=== PATIENT | female | born 1960 | race Caucasian/White ===

== ENCOUNTER 2023-09-05 10:05 | Inpatient (IN) | payer MEDICAID, SELFPAY ==
[2023-09-05] VITALS (21 sets, daily range): BP systolic 113–142; BP diastolic 66–89; PULSE 77–123; RESP 12–18; TEMP 36.9–37.2; O2SAT 88–99; BMI 22.3
--- NOTE | 2023-09-05 11:00 | CRLHL7_ITS ---
For Patients: As a result of the Century Cures Act, medical imaging exams and procedure reports are released immediately into your electronic medical record. You may view this report before your referring provider. If you have questions, please contact your health care provider. INDICATION: Abdominal pain. Diarrhea. TECHNIQUE: CT abdomen and pelvis acquired with 64 cc Isovue 370 IV contrast. COMPARISON: None. FINDINGS: Lower chest: Unremarkable. Liver: 3.3 cm superior right hepatic lobe lesion with peripheral nodular enhancement consistent with an incidental hemangioma. Diffuse hepatic steatosis. Gallbladder and bile ducts: Unremarkable. No stones or inflammation. No biliary dilatation. Pancreas: Focal enlargement and mild heterogeneous hypoenhancement of the pancreatic head with associated peripancreatic edema consistent with acute uncomplicated pancreatitis. Spleen: Unremarkable. Normal in size. No masses. Adrenal glands: Unremarkable. No nodules. Kidneys: Unremarkable. No suspicious masses, stones, or hydronephrosis. GI tract: Normal caliber. No sign of inflammation. Vasculature: Abdominal aorta is normal in caliber. Mesenteric arteries are patent. Lymph nodes: No lymphadenopathy. Peritoneum/Abdominal Wall: Small volume low-density pelvic ascites. No abscess. Pelvis: Lobulated uterus with multifocal coarse calcifications consistent with uterine fibroids which cannot be resolved on individual basis on this imaging modality, unlike ultrasound for example. Bones: Unremarkable for age. IMPRESSION: 1. Acute uncomplicated pancreatitis described above. 2. Diffuse hepatic steatosis. 3. Incidental findings described in the body of the report. Please note that all CT scans at this facility use dose modulation, iterative reconstruction, and/or weight-based dosing when appropriate to reduce radiation dose to as low as reasonably achievable. Dictated by Herberth Willams MD @ 09/05/2023 12:32:26 PM (Electronically Signed)
--- NOTE | 2023-09-05 11:04 | ED.ABDPAIN ---
HPI - Abdominal Pain General Chief Complaint: Abdominal Pain Stated Complaint: abdominal pain Time Seen by Provider: 09/05/23 10:50 History of Present Illness HPI narrative: This 63-year-old female comes in reporting abdominal pain with diarrhea and occasional vomiting occurring over the last 10 days. She arrives with normal vital signs except for tachycardia. She states that she feels that she is volume depleted. She denies having any fever or blood in the toilet. She states that she has a constant pain throughout her abdomen but more intensely in the left lower quadrant. She does have some episodes where the pain significantly increases. She states that she has taken Imodium without much relief. Related Data Home Medications Medication Instructions Recorded Confirmed amlodipine 2.5 mg tablet 2.5 mg PO DAILY 09/05/23 09/05/23 atorvastatin 20 mg tablet 20 mg PO DAILY 09/05/23 09/05/23 losartan 100 1 tab PO DAILY 09/05/23 09/05/23 mg-hydrochlorothiazide 12.5 mg tablet Allergies Allergy/AdvReac Type Severity Reaction Status Date / Time sulfas Allergy Unknown Unknown Uncoded 09/05/23 12:00 Review of Systems Status of ROS Reports: 10 or more systems reviewed and unremarkable except as noted in History and below Narrative Constitutional: No fevers. Eyes: No discharge. No vision changes. HENT: No congestion, no sore throat, no ear pain. Cardiovascular: No chest pain, no palpitations. Respiratory: No shortness of breath, no wheezes, no cough. Gastrointestinal: Abdominal pain with vomiting and diarrhea as described above. Genitourinary: No dysuria, no hematuria. Musculoskeletal: Normal range of motion. Skin: No rashes, no pruritis. Neurological: No dizziness, weakness, sensory change, speech change. Endo/Heme/Allergies: No bruising or bleeding. No polydipsia. Pysch: no suicidality, no anxiety, no insomnia. All other systems reviewed and are negative. PFSH PFSH Social History Smoking Status: Never smoker How often do you have a drink containing alcohol: 4 or more times a week How many standard drinks containing alcohol do you have on a typical day: 3 or 4 How often do you have six or more drinks on one occasion: Daily or almost daily AUDIT-C Alcohol total score: 9 Non-prescribed substance use: denies use service: No Exam Narrative: Exam Narrative: Constitutional: Well-developed, well-nourished, no acute distress. HEENT: Normocephalic, atraumatic. Neck: Normal range of motion. Nontender. Supple. Heart: Regular. No murmurs. Normal rate. Intact distal pulses. Lungs: Clear to auscultation. No chest discomfort. No wheezes, rhonchi, or rales. Abdomen: Normal bowel sounds. Diffuse tenderness throughout the abdomen. She feels that her abdomen is distended. No rebound tenderness. Genitalia: Deferred. Back: No midline tenderness. Normal range of motion. Extremities: Normal range of motion. No injury. Skin: Intact. No rash. Warm. No erythema or pallor. Neurologic: No altered sensation. No weakness. Alert and oriented. Psychiatric: No suicidality. No anxiety or depression. No insomnia. Nursing notes and vitals signs are reviewed. Const: Vital Signs, click to edit/add: Vital Signs - 24 hr 09/05/23 10:14 09/05/23 11:27 09/05/23 11:28 Temperature 98.7 F Pulse Rate 91 88 Pulse Rate [Pulse Oximeter] 123 H Respiratory Rate 18 Blood Pressure 126/72 Blood Pressure [Ri ght Upper Arm] 132/78 Pulse Oximetry 97 88 97 Oxygen Delivery Me thod Room Air 09/05/23 11:30 09/05/23 11:32 09/05/23 11:45 Temperature Pulse Rate 87 86 84 Pulse Rate [Pulse Oximeter] Respiratory Rate Blood Pressure 113/66 Blood Pressure [Ri ght Upper Arm] Pulse Oximetry 97 96 95 Oxygen Delivery Me thod 09/05/23 12:00 09/05/23 12:03 09/05/23 12:15 Temperature Pulse Rate 94 95 88 Pulse Rate [Pulse Oximeter] Respiratory Rate Blood Pressure 132/77 Blood Pressure [Ri ght Upper Arm] Pulse Oximetry 97 98 97 Oxygen Delivery Me thod 09/05/23 12:30 09/05/23 12:32 09/05/23 12:45 Temperature Pulse Rate 89 89 84 Pulse Rate [Pulse Oximeter] Respiratory Rate Blood Pressure 123/70 Blood Pressure [Ri ght Upper Arm] Pulse Oximetry 97 96 94 Oxygen Delivery Me thod Course Vital Signs Vital signs: Initial Vital Signs Temperature 98.7 F 09/05/23 10:14 Temperature Source Temporal Artery Scan 09/05/23 10:14 Pulse Rate 123 H 09/05/23 10:14 Respiratory Rate 18 09/05/23 10:14 Blood Pressure 132/78 09/05/23 10:14 Blood Pressure Mean 96 09/05/23 10:14 Pulse Oximetry 97 09/05/23 10:14 Oxygen Delivery Method Room Air 09/05/23 10:14 Vital Signs Temperature 98.7 F 09/05/23 10:14 Pulse Rate 123 H 09/05/23 10:14 Respiratory Rate 18 09/05/23 10:14 Blood Pressure 132/78 09/05/23 10:14 Pulse Oximetry 97 09/05/23 10:14 Oxygen Delivery Method Room Air 09/05/23 10:14 Temperature 98.7 F 09/05/23 10:14 Pulse Rate 84 09/05/23 12:45 Respiratory Rate 18 09/05/23 10:14 Blood Pressure 123/70 09/05/23 12:32 Pulse Oximetry 94 09/05/23 12:45 Oxygen Delivery Method Room Air 09/05/23 10:14 Medications Administered Medications: Discontinued Medications Generic Name Dose Route Start Last Admin Trade Name Freq PRN Reason Stop Dose Admin Sodium Chloride 1,000 mls @ 1,000 mls/hr 09/05/23 11:00 09/05/23 12:22 0.9 % Sodium Chloride 1000 Ml IV 09/05/23 11:59 Infused .Q1H MATT Infusion MDM - Abdominal Pain MDM Narrative Medical decision making narrative: This 63-year-old female comes in with abdominal pain. An IV was established where she did receive a L of normal saline. Lab results are obtained in returned with evidence of pancreatitis. Her lipase was close to 4500. She also has elevated liver enzymes typical of alcohol abuse. The patient states that she does take 2 or 3 glasses of wine every night. She reports that she has not had pancreatitis in the past. CT imaging also shows evidence of a calcified uterine fibroid and a liver hemangioma. Urinalysis does have 10-25 white blood cells per high-powered field. She does not describe any symptoms of dysuria. I recommended admission to the hospital to the patient and she is agreeable with this plan. I spoke with the hospitalist, Dr. Hollingsworth, who will arrange for admission and ongoing management of her pancreatitis. Lab Data Labs: Lab Results 09/05/23 09/05/23 Range/Units 10:38 10:47 WBC 8.94 (4.50-11.00) K/uL RBC 3.45 L (4.00-5.20) m/uL Hgb 12.1 (12.0-16.0) gm/dL Hct 36.4 (33.0-51.0) % MCV 106 H (80-100) fL MCH 35 H (26-34) pg MCHC 33 (32-36) gm/dL RDW Coeff of Inocencio 12.4 (11.5-15.5) % Plt Count 117 L (140-440) K/uL Neut % (Auto) 75.1 H (42.0-72.0) % Lymph % (Auto) 11.1 L (20-44) % [place] % (Auto) 13.0 H (0.0-11.0) % Eos % (Auto) 0.1 (0.0-7.0) % Baso % (Auto) 0.4 (0.0-3.0) % Neut # (Auto) 6.70 (1.7-7.0) K/uL Lymph # (Auto) 1.00 (0.90-2.90) K/uL [place] # (Auto) 1.20 H (0.00-0.90) K/UL Eos # (Auto) 0.01 (0.00-0.50) K/uL Baso # (Auto) 0.04 (0.00-0.30) K/uL Abs Immat Gran (auto) 0.03 (0.00-0.30) K/uL Imm/Tot Granulo (auto) 0.3 % Sodium 131 L (135-149) mmol/L Potassium 4.1 (3.6-5.1) mmol/L Chloride 86 L (96-114) mmol/L Carbon Dioxide 21 (20-32) mmol/L Anion Gap 24 H (7-15) mEq/L BUN 21 (7-30) mg/dL Creatinine 1.3 (0.5-1.5) mg/dL Estimated Creat Clear 38.25 Estimated GFR 46 ml/min Glucose 93 (60-115) mg/dL Calcium 11.4 H (8.4-10.6) mg/dL Total Bilirubin 1.6 H (0.1-1.5) mg/dL Direct Bilirubin 0.7 H (0.0-0.5) mg/dL AST 271 H (12-35) U/L ALT 128 H (4-35) U/L Alkaline Phosphatase 132 (40-150) U/L Total Protein 8.5 H (6.0-8.3) g/dL Albumin 5.1 H (3.3-5.0) g/dL Lipase 4490 H (23-300) U/L Urine Color Yellow (Yellow) Urine Appearance Slightly Cloudy A (Clear) Urine pH 5.5 (5.0-8.5) Ur Specific [place] 1.020 (1.000-1.030) Urine Protein Trace A (Negative) Urine Glucose (UA) Negative (Negative) Urine Ketones 1+ A (Negative) Urine Blood 2+ A (Negative) Urine Nitrite Negative (Negative) Urine Bilirubin 2+ A (Negative) Urine Urobilinogen 0.2 (0.2-1.0) Ur Leukocyte Esterase 1+ A (Negative) Urine RBC 5-10 A (0-2) Urine WBC 10-25 A (0-5) Ur Squamous Epith Cells Few (None-Few) Urine Bacteria Moderate A (None) Discharge Plan Discharge Clinical Impression: Acute pancreatitis Patient Disposition: Admitted As Observation Condition: Unchanged Prescriptions: No Action amlodipine 2.5 mg tablet 2.5 mg PO DAILY atorvastatin 20 mg tablet 20 mg PO DAILY losartan-hydrochlorothiazide 100-12.5 mg tablet 1 tab PO DAILY Follow Up/Referrals: Provider,Not a Local [Primary Care Provider] -
[2023-09-05 11:23] LABS: Basophils Absolute Auto 0.04 K/uL (0.00-0.30); Basophils Percent Auto 0.4 % (0.0-3.0); Eosinophils Absolute Auto 0.01 K/uL (0.00-0.50); Eosinophils Percent Auto 0.1 % (0.0-7.0); Hematocrit 36.4 % (33.0-51.0); Hemoglobin* 12.1 gm/dL (12.0-16.0); Immature Granulocytes Abs Auto 0.03 K/uL (0.00-0.30); Immature Granulocytes Pct Auto 0.3 %; Lymphocytes Percent Auto 11.1 % (20-44); Mean Corpuscular HGB Conc 33 gm/dL (32-36); Mean Corpuscular Hemoglobin 35 pg (26-34); Mean Corpuscular Volume 106 fL (80-100); Neutrophils Percent Auto 75.1 % (42.0-72.0); Platelet Count* 117 K/uL (140-440); RDW Coefficient of Variation % 12.4 % (11.5-15.5); Red Blood Count 3.45 m/uL (4.00-5.20); White Blood Count* 8.94 K/uL (4.50-11.00)
[2023-09-05 11:26] LABS: Slide Review Reflex No
[2023-09-05] MEDS: 0.9 % SODIUM CHLORIDE 1000 ml 1,000 ML IV (11:27)
[2023-09-05 11:31] LABS: Appearance Urine Slightly Cloudy (Clear); Bilirubin Urine 2+ (Negative); Blood Urine 2+ (Negative); Color Urine Yellow (Yellow); Glucose Urine Negative (Negative); Ketones Urine 1+ (Negative); Leukocyte Esterase Urine 1+ (Negative); Nitrite Urine Negative (Negative); Protein Urine Trace (Negative); Urobilinogen Urine 0.2 (0.2-1.0); pH Urine 5.5 (5.0-8.5)
[2023-09-05 11:32] LABS: Bacteria Urine Moderate; Squamous Epithelial Cell Urine Few (None-Few)
[2023-09-05 11:35] LABS: Albumin* 5.1 g/dL (3.3-5.0)
[2023-09-05 11:36] LABS: Chloride* 86 mmol/L (96-114); Sodium* 131 mmol/L (135-149)
[2023-09-05 11:37] LABS: Potassium* 4.1 mmol/L (3.6-5.1)
[2023-09-05 11:38] LABS: Aspartate Amino Transferase* 271 U/L (12-35); Bilirubin Direct* 0.7 mg/dL (0.0-0.5); Bilirubin Total* 1.6 mg/dL (0.1-1.5); Total Protein* 8.5 g/dL (6.0-8.3)
[2023-09-05 11:39] LABS: Alanine Aminotransferase* 128 U/L (4-35); Alkaline Phosphatase* 132 U/L (40-150); Creatinine* 1.3 mg/dL (0.5-1.5); Est. Creatinine Clearance* 38.25; Estimated Glomerular Filt Rate 46 ml/min
[2023-09-05 11:40] LABS: Anion Gap 24 mEq/L (7-15); Blood Urea Nitrogen* 21 mg/dL (7-30); Calcium* 11.4 mg/dL (8.4-10.6); Carbon Dioxide* 21 mmol/L (20-32); Glucose* 93 mg/dL (60-115)
[2023-09-05 12:16] LABS: Lipase* 4490 U/L (23-300)
--- NOTE | 2023-09-05 15:14 | PM.IMHP1 ---
Hospitalist- H&P: HPI History of Present Illness Date Seen: 09/05/23 Chief complaint: abdominal pain Narrative: ADMISSION HISTORY AND PHYSICAL - HOSPITALIST Chief Complaint: acute pancreatitis, alcohol use disorder HPI: 63 y/o WF with a history of daily alcohol use and likely alcohol use disorder presents with acute pancreatitis. She states she has not been well for almost 2 weeks. She describes abdominal pain that comes in waves and frequent diarrheal stools. No fever. Intermittent vomiting. No appetite. She presented today to our ER secondary to increasing abdominal pain inability to work as a hairdresser. She describes her alcohol intake as daily with a minimum of 3 glasses of wine after work. She lives with her fiance who also drinks. She does not smoke tobacco. She does not use drugs. She states that she has had the shakes before when she cuts back on drinking but has never known to be in full withdrawal or have had a seizure. She has never had pancreatitis before. Her other past medical history is relevant for hypertension and hyperlipidemia. She has a history of SVT and is status post ablation. ER COURSE: fluids, CT A/P with labs. No opioids given. Hospitalist team called for admission secondary to acute pancreatitis. CODE STATUS: FULL CODE EMERGENCY CONTACT PLAN: MelissaJori? Life Partner?Rel to [facility]? [phone]?Cell Phone? I've updated the PFSH, medications and allergies in the Expanse tabs. INVESTIGATIONS: LABS/MICRO/ECG/IMAGING CBC reflects a normal white blood cell count. Normal hemoglobin. MCV 106. Platelet count 117. Chemistries reflect a mild hyponatremia, creatinine 1.3, hypercalcemia, transaminitis with mild hyperbilirubinemia Elevated albumin, total protein and a lipase of 4490. Pending: Blood gas, INR, GGT, magnesium, drugs of abuse REVIEW OF SYSTEMS: 12-point ROS completed with patient and negative unless otherwise stated in HPI or below. PHYSICAL EXAM: CONSTITUTIONAL: anxious appearing, tremulous, otherwise coherent VITAL SIGNS: see record. HEENT: Normocephalic, atraumatic. PERRL, EOMI, conjunctivae pink, no scleral icterus. Ears and nose externally normal. Pharynx normal. NECK: No JVD. No carotid bruit, no thyromegaly, no adenopathy. CHEST: Clear to auscultation bilaterally HEART: S1 and S2 normal. No harsh murmurs. Edema trace ABDOMEN: Tender across the mid epigastric. Normal bowel sounds. MUSCULOSKELETAL: No gross joint deformity or swelling. NEURO: Cranial nerves intact. Grossly intact. No asymmetric findings. SKIN: No rashes, petechiae, concerning changes PSYCHIATRIC: Euthymic. ADMIT TO MEDSURG: FLOOR CARE DVT: Lovenox GI: NPO with PPI and advanced to clears when appropriate Time spent: Today I spent 75 minutes seeing the patient, discussing the patient with ER staff, reviewing Expanse and EPIC notes/diagnostics, discussing the care plan with our care time that includes social work, PT/OT, pharmacy, RT, penitentiary and documenting my impressions and plan in the medical record. [facility] Medical History (Updated 09/05/23 @ 15:39 by Regla Camarillo MD) Alcoholic liver disease ?K70.9 - Alcoholic liver disease, unspecified (ICD-10) Alcohol use disorder ?F10.90 - Alcohol use, unspecified, uncomplicated (ICD-10) Hyperlipidemia ?E78.5 - Hyperlipidemia, unspecified (ICD-10) Hypertension ?I10 - Essential (primary) hypertension (ICD-10) Surgical History (Updated 09/05/23 @ 15:37 by Regla Camarillo MD) History of dilation and curettage ?Z98.890 - Other specified postprocedural states (ICD-10) History of tonsillectomy ?Z90.89 - Acquired absence of other organs (ICD-10) History of radiofrequency ablation procedure for cardiac arrhythmia ?Z98.890 - Other specified postprocedural states (ICD-10) Social History (Updated 09/05/23 @ 15:38 by Regla Camarillo MD) Narrative: lives with life partner, JORI. drinks daily, works as a hairdresser. What is your current living situation?: I presently have a place to live Problems where you live: no known problems Problems where you live details: none In the past 12 months, utilities in danger of being shut off: no In past 12 months, lack of transportation kept you from medical appts, meetings, work, or getting things needed for daily living: no In the past 12 mos, have been you worried that your food would run out before you had money to buy more?: never true In the past 12 mos, the food you bought just didn't last and you didn't have money to buy more?: never true Highest level of school completed/degree received: some college, no degree Smoking Status: Former smoker Nicotine containing products detail: Have not smoked for 45 years How often do you have a drink containing alcohol: 4 or more times a week Alcohol type: wine How many standard drinks containing alcohol do you have on a typical day: 3 or 4 How often do you have six or more drinks on one occasion: Monthly AUDIT-C Alcohol total score: 7 Non-prescribed substance use: denies use Caffeine: No How often does anyone, including family, friends and others, physically hurt you: never How often does anyone, including family, friends and others, insult or talk down to you: never How often does anyone, including family, friends and others, threaten you with harm: never How often does anyone, including family, friends and others, scream or curse at you: never service: No Meds Home Medications and Allergies Home Medications Medication Instructions Recorded Confirmed Type amlodipine 2.5 mg tablet 2.5 mg PO DAILY 09/05/23 09/05/23 History atorvastatin 20 mg tablet 20 mg PO DAILY 09/05/23 09/05/23 History losartan 100 1 tab PO DAILY 09/05/23 09/05/23 History mg-hydrochlorothiazide 12.5 mg tablet Allergies Allergy/AdvReac Type Severity Reaction Status Date / Time sulfas Allergy Unknown Unknown Uncoded 09/05/23 12:00 Exam Const: Vital Signs, click to edit/add: Vital Signs - 24 hr 09/05/23 10:14 09/05/23 11:27 09/05/23 11:28 Temperature 98.7 F Pulse Rate 91 88 Pulse Rate [Pulse Oximeter] 123 H Respiratory Rate 18 Blood Pressure 126/72 Blood Pressure [Ri ght Arm] Blood Pressure [Ri ght Upper Arm] 132/78 Pulse Oximetry 97 88 97 Oxygen Delivery Me thod Room Air 09/05/23 11:30 09/05/23 11:32 09/05/23 11:45 Temperature Pulse Rate 87 86 84 Pulse Rate [Pulse Oximeter] Respiratory Rate Blood Pressure 113/66 Blood Pressure [Ri ght Arm] Blood Pressure [Ri ght Upper Arm] Pulse Oximetry 97 96 95 Oxygen Delivery Me thod 09/05/23 12:00 09/05/23 12:03 09/05/23 12:15 Temperature Pulse Rate 94 95 88 Pulse Rate [Pulse Oximeter] Respiratory Rate Blood Pressure 132/77 Blood Pressure [Ri ght Arm] Blood Pressure [Ri ght Upper Arm] Pulse Oximetry 97 98 97 Oxygen Delivery Me thod 09/05/23 12:30 09/05/23 12:32 09/05/23 12:45 Temperature Pulse Rate 89 89 84 Pulse Rate [Pulse Oximeter] Respiratory Rate Blood Pressure 123/70 Blood Pressure [Ri ght Arm] Blood Pressure [Ri ght Upper Arm] Pulse Oximetry 97 96 94 Oxygen Delivery Me thod 09/05/23 13:51 Temperature 98.6 F Pulse Rate Pulse Rate [Pulse Oximeter] 98 Respiratory Rate 12 Blood Pressure Blood Pressure [Ri ght Arm] 134/89 Blood Pressure [Ri ght Upper Arm] Pulse Oximetry 98 Oxygen Delivery Me thod Room Air Hospitalist - H&P: Result Labs Labs: Short CBC 09/05/23 Range/Units 10:38 WBC 8.94 (4.50-11.00) K/uL Hgb 12.1 (12.0-16.0) gm/dL Hct 36.4 (33.0-51.0) % Plt Count 117 L (140-440) K/uL BMP 09/05/23 10:38 Sodium 131 L Potassium 4.1 Chloride 86 L Carbon Dioxide 21 BUN 21 Creatinine 1.3 Glucose 93 Calcium 11.4 H Liver Function 09/05/23 Range/Units 10:38 Total Bilirubin 1.6 H (0.1-1.5) mg/dL Direct Bilirubin 0.7 H (0.0-0.5) mg/dL AST 271 H (12-35) U/L ALT 128 H (4-35) U/L Alkaline Phosphatase 132 (40-150) U/L Albumin 5.1 H (3.3-5.0) g/dL Urine 09/05/23 Range/Units 10:47 Urine Color Yellow (Yellow) Urine Appearance Slightly Cloudy A (Clear) Urine pH 5.5 (5.0-8.5) Ur Specific [place] 1.020 (1.000-1.030) Urine Protein Trace A (Negative) Urine Glucose (UA) Negative (Negative) Assessment and Plan Assessment and plan (1) Acute pancreatitis: Problem comment: - by imaging uncomplicated - analgesia, antiemetics, rehydration -trend labs Status: Acute (2) Alcohol withdrawal: Problem comment: -last drink (relates 2-3 glasses of wine daily; sometimes a bloody isak) on 09/03. BARBARA ordered -Ativan per protocol. -phenobarb, 260 mg load -fluids -CCU status pending clinical appearance over the next 2-4 hours Status: Acute (3) Diarrhea: Problem comment: -stool cultures and C diff ordered Status: Acute (4) Alcoholic liver disease: Problem comment: -stigmata to include low platelets, elevated MCV, low sodium, transaminitis, hyperbilirubinemia Status: Acute (5) Alcohol use disorder: Problem comment: -minimal acknowledgement Status: Acute (6) Hypertension: Problem comment: -3 med home regimen: Amlodipine, losartan, hydrochlorothiazide -monitor but hold meds currently Status: Acute (7) Hyperlipidemia: Problem comment: -statin, on hold currently Status: Acute
[2023-09-05 15:21] LABS: HCO3 VBG 26 mmol/L (21-28); Ionized Calcium* 1.29 mmol/L (1.11-1.30); PCO2 VBG 42 mmHG (40-50)
[2023-09-05] MEDS: 5 % DEXTROSE/0.9% SOD CHLORIDE 1,000 ML 125 ML IV (15:24)
[2023-09-05] MEDS: PANTOPRAZOLE SODIUM 40 MG INJ IVP (15:24)
[2023-09-05 15:29] LABS: INR 0.94 (0.91-1.10); Prothrombin Time 13.1 Seconds
[2023-09-05] MEDS: PHENobarbitaL 260 MG in 0.9 % SODIUM CHLORIDE 100 ml 100 ML 208 MG IVPB (15:35)
[2023-09-05 15:39] LABS: Gamma Glutamyl Transpeptidase* 504 U/L (8-55); Magnesium* 1.3 mg/dL (1.5-2.6)
[2023-09-05] MEDS: HYDROmorphone 0.5 mg/0.5 ml inj IVP ×3 (15:45→22:27)
[2023-09-05] MEDS: ENOXAPARIN 30 MG/0.3ML INJ SUBCUT (15:45)
[2023-09-05 16:00] LABS: C Reactive Protein* 3.1 mg/dL (0.5-1.0)
--- NOTE | 2023-09-05 16:00 | PC.NURSE ---
End of Shift: Patient arrived to floor about 1347. Patient vitally stable, lungs clear, BS WNL, IV SL. Patient rates lower epigastric pain/abdominal pain 8/10. Patient independent in room. Patient has obvious tremors in hands and reports being a little more anxious because she is in the hospital. Patient reports loose stools. Admission completed by this movie writer then assignment change occurred, report given to next RN.
[2023-09-05 16:13] LABS: Troponin I* < 0.01 ng/mL (0.01-0.04)
[2023-09-05] MEDS: THIAMINE 250 MG in 0.9 % SODIUM CHLORIDE 100 ml 100 ML 102.5 MG IVPB (20:08)
[2023-09-05] MEDS: GABAPENTIN 300 MG CAPSULE PO (20:08)
[2023-09-06] VITALS (16 sets, daily range): BP systolic 108–142; BP diastolic 65–90; PULSE 69–92; RESP 14–18; TEMP 36.7–37.7; O2SAT 93–97
[2023-09-06] MEDS: 5 % DEXTROSE/0.9% SOD CHLORIDE 1,000 ML 125 ML IV ×2 (01:39→09:24)
[2023-09-06] MEDS: KETOROLAC 30 MG/ML inj IVP ×4 (01:40→21:12)
[2023-09-06] MEDS: SODIUM CHLORIDE 0.9 % (FLUSH) 10 ML SYRINGE 5 ML IVF ×4 (01:40→21:14)
[2023-09-06] MEDS: HYDROmorphone 0.5 mg/0.5 ml inj IVP ×5 (06:30→21:14)
[2023-09-06] MEDS: OMEPRAZOLE 20 MG CAPSULE DR 40 MG PO (06:30)
[2023-09-06 07:37] LABS: Hematocrit 32.3 % (33.0-51.0); Hemoglobin* 10.5 gm/dL (12.0-16.0); Mean Corpuscular HGB Conc 33 gm/dL (32-36); Mean Corpuscular Hemoglobin 35 pg (26-34); Mean Corpuscular Volume 108 fL (80-100); Platelet Count* 102 K/uL (140-440); Red Blood Count 2.98 m/uL (4.00-5.20); White Blood Count* 5.57 K/uL (4.50-11.00)
[2023-09-06 07:45] LABS: Slide Review Reflex No
[2023-09-06 07:48] LABS: Chloride* 100 mmol/L (96-114); Sodium* 136 mmol/L (135-149)
[2023-09-06 07:49] LABS: Iron* 46 ug/dL (37-170); Potassium* 3.4 mmol/L (3.6-5.1)
[2023-09-06 07:51] LABS: Anion Gap 11 mEq/L (7-15); Aspartate Amino Transferase* 115 U/L (12-35); Bilirubin Direct* 0.1 mg/dL (0.0-0.5); Bilirubin Total* 0.8 mg/dL (0.1-1.5); Carbon Dioxide* 25 mmol/L (20-32); Creatinine* 0.9 mg/dL (0.5-1.5); Est. Creatinine Clearance* 48.78; Estimated Glomerular Filt Rate 72 ml/min; Total Protein* 6.9 g/dL (6.0-8.3)
[2023-09-06 07:52] LABS: Alanine Aminotransferase* 83 U/L (4-35); Alkaline Phosphatase* 98 U/L (40-150); Blood Urea Nitrogen* 17 mg/dL (7-30); Calcium* 8.7 mg/dL (8.4-10.6); Glucose* 125 mg/dL (60-115); Phosphorus* 3.4 mg/dL (2.5-4.5)
[2023-09-06 07:54] LABS: C Reactive Protein* 3.3 mg/dL (0.5-1.0)
[2023-09-06 07:59] LABS: Percent Iron Saturation 22 % (20-50); Total Iron Binding Capacity 211 ug/dL (265-497)
[2023-09-06 08:35] LABS: Lipase* 19752 U/L (23-300)
[2023-09-06] MEDS: THIAMINE 250 MG in 0.9 % SODIUM CHLORIDE 100 ml 100 ML 100 MG IVPB (09:24)
[2023-09-06] MEDS: FOLIC ACID 1 MG TABLET PO (09:26)
[2023-09-06] MEDS: LOSARTAN POTASSIUM 50 MG TABLET 100 MG PO (09:26)
[2023-09-06] MEDS: MULTIVITAMIN/MINERALS 1 TABLET 1 TAB PO (09:26)
[2023-09-06] MEDS: hydroCHLOROthiazide 12.5 MG CAPSULE PO (09:26)
[2023-09-06] MEDS: AMLODIPINE 5 MG TABLET 2.5 MG PO (09:26)
[2023-09-06] MEDS: ATORVASTATIN 10 MG TABLET 20 MG PO (09:26)
--- NOTE | 2023-09-06 10:15 | PM.IMPN1 ---
Progress Note: A&P Assessment and plan (1) Acute pancreatitis: Problem details: - by imaging uncomplicated - analgesia, antiemetics, rehydration - nausea, vomiting, diarrhea resolved - clear liquid diet - continue to trend labs, CMP, lipase Status: Acute (2) Alcohol withdrawal: Problem details: -last drink (relates 2-3 glasses of wine daily; sometimes a bloody isak) on 09/03. CIWA ordered -Ativan per protocol. -phenobarb, 260 mg load x1 -continue IVF, thiamine, folate, MVI -okay for med surg status on 09/06 -UDS pending Status: Acute (3) Diarrhea: Problem details: -stool cultures and C diff pending 09/06: No further stools Status: Acute (4) Alcoholic liver disease: Problem details: -stigmata to include low platelets, elevated MCV, low sodium, transaminitis, hyperbilirubinemia -continue to trend labs -outpatient follow-up Status: Acute (5) Alcohol use disorder: Problem details: -minimal acknowledgement -social work instructor for CD eval if still in hospital on Friday Status: Acute (6) Hypertension: Problem details: -3 med home regimen: Amlodipine, losartan, hydrochlorothiazide -monitor but hold meds - continue to hold given soft pressures 09/06 Status: Acute (7) Hyperlipidemia: Problem details: -statin, on hold currently Status: Acute Time Spent With Patient Total time spent: Total time spent caring for the patient today was 45 minutes. This includes time spent for the visit reviewing the chart, time spent during the visit, time spent after the visit and documentation and planning in coordination of care. Subjective Date Seen: 09/06/23 Interval history: Patient reports feeling better than on admission. Continues to have abdominal pain but this has improved as well. No further nausea or vomiting. No further loose stools. Denies headache or dizziness currently. Remains afebrile. Has been shaky but less so today than on admission. Denies history of withdrawals. Exam Narrative: Exam Narrative: PHYSICAL EXAM General: Pleasant, conversant, NAD HEENT: Normocephalic, atraumatic, sclera white, EOMI, oral mucosa moist Cardiovascular: RRR, S1S2. No pitting edema Pulmonary: CTA bilaterally without rhonchi, rales, expiratory wheezes. No dyspnea Abdominal: Soft, nondistended, RUQ and midepigastric tenderness on palpation, no guarding Neurological: Alert, answering questions appropriately, cranial nerves intact, no focal findings Extremities: Upper extremities tremulous, No gross joint deformity or swelling. AROMI. Neurovascularly intact Skin: Warm, dry. Const: Vital Signs, click to edit/add: Vital Signs - 24 hr 09/05/23 11:27 09/05/23 11:28 09/05/23 11:30 Temperature Pulse Rate 91 88 87 Pulse Rate [Pulse Oximeter] Respiratory Rate Blood Pressure 126/72 Blood Pressure [Ri ght Arm] Pulse Oximetry 88 97 97 Oxygen Delivery Me thod 09/05/23 11:32 09/05/23 11:45 09/05/23 12:00 Temperature Pulse Rate 86 84 94 Pulse Rate [Pulse Oximeter] Respiratory Rate Blood Pressure 113/66 Blood Pressure [Ri ght Arm] Pulse Oximetry 96 95 97 Oxygen Delivery Me thod 09/05/23 12:03 09/05/23 12:15 09/05/23 12:30 Temperature Pulse Rate 95 88 89 Pulse Rate [Pulse Oximeter] Respiratory Rate Blood Pressure 132/77 Blood Pressure [Ri ght Arm] Pulse Oximetry 98 97 97 Oxygen Delivery Me thod 09/05/23 12:32 09/05/23 12:45 09/05/23 13:51 Temperature 98.6 F Pulse Rate 89 84 Pulse Rate [Pulse Oximeter] 98 Respiratory Rate 12 Blood Pressure 123/70 Blood Pressure [Ri ght Arm] 134/89 Pulse Oximetry 96 94 98 Oxygen Delivery Me thod Room Air 09/05/23 15:20 09/05/23 15:20 09/05/23 15:20 Temperature 98.9 F Pulse Rate Pulse Rate [Pulse Oximeter] 92 Respiratory Rate 18 Blood Pressure Blood Pressure [Ri ght Arm] 142/85 H Pulse Oximetry 96 96 96 Oxygen Delivery Me thod Room Air Room Air 09/05/23 16:00 09/05/23 16:50 09/05/23 17:00 Temperature Pulse Rate 77 Pulse Rate [Pulse Oximeter] 87 77 Respiratory Rate 18 16 Blood Pressure Blood Pressure [Ri ght Arm] 137/88 123/76 Pulse Oximetry 96 97 Oxygen Delivery Me thod Room Air Room Air 09/05/23 19:45 09/05/23 20:00 09/05/23 22:00 Temperature 98.5 F Pulse Rate 77 Pulse Rate [Pulse Oximeter] 87 81 Respiratory Rate 16 16 Blood Pressure Blood Pressure [Ri ght Arm] 126/80 137/87 Pulse Oximetry 99 94 Oxygen Delivery Sc thod Room Air Room Air 09/05/23 23:00 09/06/23 00:00 09/06/23 02:00 Temperature Pulse Rate Pulse Rate [Pulse Oximeter] 73 74 Respiratory Rate 16 16 16 Blood Pressure Blood Pressure [Ri ght Arm] 135/81 118/90 H Pulse Oximetry 96 94 Oxygen Delivery Sc thod Room Air Room Air 09/06/23 05:00 09/06/23 07:00 09/06/23 07:00 Temperature 98.3 F 98.4 F Pulse Rate Pulse Rate [Pulse Oximeter] 73 79 79 Respiratory Rate 16 16 16 Blood Pressure Blood Pressure [Ri ght Arm] 118/84 129/81 Pulse Oximetry [address] [facility] [facility] 09/06/23 07:35 09/06/23 09:54 Temperature 98.4 F 98.0 F Pulse Rate Pulse Rate [Pulse Oximeter] 79 84 Respiratory Rate 16 18 Blood Pressure Blood Pressure [Ri ght Arm] 129/81 108/65 Pulse Oximetry 97 97 Oxygen Delivery Sc thod Room Air Room Air Labs Labs: Laboratory Results - last 24 hr 09/05/23 09/05/23 09/05/23 10:38 10:47 15:04 WBC 8.94 RBC 3.45 L Hgb 12.1 Hct 36.4 MCV 106 H MCH 35 H MCHC 33 RDW Coeff of Inocencio 12.4 Plt Count 117 L Neut % (Auto) 75.1 H Lymph % (Auto) 11.1 L [place] % (Auto) 13.0 H Eos % (Auto) 0.1 Baso % (Auto) 0.4 Neut # (Auto) 6.70 Lymph # (Auto) 1.00 [place] # (Auto) 1.20 H Eos # (Auto) 0.01 Baso # (Auto) 0.04 Abs Immat Gran (auto) 0.03 Imm/Tot Granulo (auto) 0.3 INR 0.94 VBG pH VBG pCO2 VBG pO2 VBG HCO3 Sodium 131 L Potassium 4.1 Chloride 86 L Carbon Dioxide 21 Anion Gap 24 H BUN 21 Creatinine 1.3 Estimated Creat Clear 38.25 Estimated GFR 46 Glucose 93 Lactate Calcium 11.4 H Ionized Calcium Parag Phosphorus Magnesium 1.3 L Iron TIBC % Saturation Ferritin Total Bilirubin 1.6 H Direct Bilirubin 0.7 H GGT 504 H AST 271 H ALT 128 H Alkaline Phosphatase 132 Troponin I C-Reactive Protein Total Protein 8.5 H Albumin 5.1 H Lipase 4490 H TSH 1.920 Urine Color Yellow Urine Appearance Slightly Cloudy A Urine pH 5.5 Ur Specific [place] 1.020 Urine Protein Trace A Urine Glucose (UA) Negative Urine Ketones 1+ A Urine Blood 2+ A Urine Nitrite Negative Urine Bilirubin 2+ A Urine Urobilinogen 0.2 Ur Leukocyte Esterase 1+ A Urine RBC 5-10 A Urine WBC 10-25 A Ur Squamous Epith Cells Few Urine Bacteria Moderate A Ur Drug Screen Comment See Note Lab Acknowledgement Test Added 09/05/23 09/06/23 15:13 06:55 WBC 5.57 RBC 2.98 L Hgb 10.5 L Hct 32.3 L MCV 108 H MCH 35 H MCHC 33 RDW Coeff of Inocencio Plt Count 102 L Neut % (Auto) Lymph % (Auto) [place] % (Auto) Eos % (Auto) Baso % (Auto) Neut # (Auto) Lymph # (Auto) [place] # (Auto) Eos # (Auto) Baso # (Auto) Abs Immat Gran (auto) Imm/Tot Granulo (auto) INR VBG pH 7.390 VBG pCO2 42 VBG pO2 32.0 VBG HCO3 26 Sodium 136 Potassium 3.4 L Chloride 100 Carbon Dioxide 25 Anion Gap 11 BUN 17 Creatinine 0.9 Estimated Creat Clear 48.78 Estimated GFR 72 Glucose 125 H Lactate 1.0 Calcium 8.7 Ionized Calcium Parag 1.29 Phosphorus 3.4 Magnesium Iron 46 TIBC 211 L % Saturation 22 Ferritin 861.0 H Total Bilirubin 0.8 Direct Bilirubin 0.1 GGT AST 115 H ALT 83 H Alkaline Phosphatase 98 Troponin I < 0.01 L C-Reactive Protein 3.1 H 3.3 H Total Protein 6.9 Albumin 4.0 Lipase 93804 H TSH Urine Color Urine Appearance Urine pH Ur Specific [place] Urine Protein Urine Glucose (UA) Urine Ketones Urine Blood Urine Nitrite Urine Bilirubin Urine Urobilinogen Ur Leukocyte Esterase Urine RBC Urine WBC Ur Squamous Epith Cells Urine Bacteria Ur Drug Screen Comment Lab Acknowledgement
[2023-09-06] MEDS: LACTATED RINGERS 1000 ML 1,000 ML 75 ML IV (11:15)
[2023-09-06] MEDS: MAGNESIUM IV 2 GM/50 ML PIGGYBACK IVPB (11:16)
[2023-09-06] MEDS: LORazepam 2 MG/ML inj IVP (13:14)
[2023-09-06 13:23] LABS: Amphetamine Screen Urine Negative (Negative); Barbiturate Screen Urine POSITIVE (Negative); Benzodiazepines Screen Urine Negative (Negative); Cannabinoid Screen Urine Negative (Negative); Cocaine Screen Urine Negative (Negative); Methadone Screen Urine Negative (Negative); Methamphetamines Screen Urine Negative (Negative); Opiate Screen Urine POSITIVE (Negative); Oxycodone Screen Urine Negative (Negative); Phencyclidine Screen Urine Negative (Negative); Tricyclic Antidepressant Urine Negative (Negative)
[2023-09-06] MEDS: THIAMINE 250 MG in 0.9 % SODIUM CHLORIDE 100 ml 100 ML 102 MG IVPB (14:53)
[2023-09-06] MEDS: ENOXAPARIN 30 MG/0.3ML INJ SUBCUT (16:39)
--- NOTE | 2023-09-06 19:03 | PC.NURSE ---
End of shift- Pt pleasant and cooperative. VSS and pt is afebrile. SPO2 maintained >90% on RA. She c/o abdominal pain which she rated from 2-9 out of 10 today which appears well managed with IV Dilaudid roughly every 3 hours. CIWA from 1-13 today and pt was given Ativan once with very obvious relief. Pt alert and oriented, but remains shaky at times. She ate clear liquids today, but abdomen became distended and pt did have 3x small emesis today and was advised to decrease PO input. A few fine crackles auscultated in posterior left base, LS otherwise CTA. She was up to BR and ambulated in hallway and tolerated it well.
[2023-09-06] MEDS: GABAPENTIN 300 MG CAPSULE PO (21:12)
[2023-09-06] MEDS: THIAMINE 250 MG in 0.9 % SODIUM CHLORIDE 100 ml 100 ML 102.5 MG IVPB (21:14)
[2023-09-07] VITALS (11 sets, daily range): BP systolic 104–130; BP diastolic 63–94; PULSE 85–98; RESP 16–18; TEMP 36.7–37.4; O2SAT 94–97
[2023-09-07] MEDS: HYDROmorphone 0.5 mg/0.5 ml inj IVP ×7 (00:07→20:58)
[2023-09-07] MEDS: SODIUM CHLORIDE 0.9 % (FLUSH) 10 ML SYRINGE 5 ML IVF ×3 (00:07→20:59)
[2023-09-07] MEDS: LACTATED RINGERS 1000 ML 1,000 ML 75 ML IV ×2 (02:16→16:18)
[2023-09-07] MEDS: KETOROLAC 30 MG/ML inj IVP ×3 (05:06→18:20)
[2023-09-07] MEDS: OMEPRAZOLE 20 MG CAPSULE DR 40 MG PO (06:11)
--- NOTE | 2023-09-07 06:34 | PC.NURSE ---
pleasant and cooperative. c/o abd pain, prn Toradol x 2 & prn Dilaudid x 2, pain tolerable at end of shift - pt declined need for pain medication at that time. VSS. No ativan needed per [facility] protocol.
[2023-09-07 07:00] LABS: Hematocrit 28.3 % (33.0-51.0); Hemoglobin* 9.3 gm/dL (12.0-16.0); Mean Corpuscular HGB Conc 33 gm/dL (32-36); Mean Corpuscular Hemoglobin 36 pg (26-34); Mean Corpuscular Volume 108 fL (80-100); Platelet Count* 88 K/uL (140-440); Red Blood Count 2.62 m/uL (4.00-5.20)
[2023-09-07 07:05] LABS: Slide Review Reflex Yes
[2023-09-07 07:06] LABS: Slide Review Acceptable Review (Acceptable)
--- NOTE | 2023-09-07 07:12 | P.IMPN_ITS ---
Progress Note: A&P Assessment and plan (1) Acute pancreatitis: Problem details: - by imaging uncomplicated - analgesia, antiemetics, rehydration - nausea, vomiting, diarrhea resolved - clear liquid diet - continue to trend labs, CMP, lipase - improving, trending down 09/07: Labs trending down, lipase remains significantly elevated >64598 (down from 19,000). Discussed clear liquid diet in small amounts, taking it slowly so as to decrease pain, nausea/vomiting. Suspect by doing this, these symptoms will improve. Will need to continue to monitor closely. Abdominal x-ray obtained for bloating/discomfort showing minimal dilatation of the right colon. Senna b.i.d. scheduled, simethicone p.r.n.. Consider complete abdomen ultrasound if new or worsening symptoms or no resolve. CT had shown small volume low-density pelvic ascites. Status: Acute (2) Alcohol withdrawal: Problem details: -last drink (relates 2-3 glasses of wine daily; sometimes a bloody isak) on 09/03. CIWA protocol -Ativan per protocol. -phenobarb, 260 mg load x1 (has not needed any further dosing) -thiamine, folate, MVI -okay for med surg status on 09/06 -UDS with opiates and barbiturates otherwise negative Status: Acute (3) Diarrhea: Problem details: -stool cultures and C diff pending - discontinued these labs as no further stools since admission Status: Acute (4) Alcoholic liver disease: Problem details: -stigmata to include low platelets, elevated MCV, low sodium, transaminitis, hyperbilirubinemia -continue to trend labs -outpatient follow-up Status: Acute (5) Alcohol use disorder: Problem details: -minimal acknowledgement -social services technician for CD eval Friday -mireya also drinking daily, per patient, sounds as though he may be difficult support, making excuses for both of them Status: Acute (6) Hypertension: Problem details: -continue Amlodipine, losartan, hydrochlorothiazide Status: Acute (7) Hyperlipidemia: Problem details: -continue statin Status: Acute (8) Thrombocytopenia: Problem details: -in setting of chronic alcohol abuse -platelets down trending, 88 from 117. Continue to monitor. May need to stop enoxaparin for another prophylactic Status: Acute (9) Anemia: Problem details: -in setting of chronic alcohol abuse -hemoglobin 9.3, down from 12.1, likely somewhat dilutional. RBC 2.62, hematocrit 28, iron 46, TIBC 211, ferritin 861 Status: Acute (10) Hypokalemia: Problem details: -Potassium 3.2, down from 3.4 -3 bumps IV potassium chloride ordered given abdominal discomfort, nausea. Recheck in the morning. Consider oral supplement when tolerating orals Status: Acute (11) Bacteriuria: Problem details: -prelim urine culture growing Gram-negative rods. Asymptomatic. Defer antibiotics for now Status: Acute Plan Continue IV hydration, monitoring labs. Clears, in small amounts, for now. Plan will eventually be to advance diet as tolerated. Time Spent With Patient Total time spent: Total time spent caring for the patient today was 45 minutes. This includes time spent for the visit reviewing the chart, time spent during the visit, time spent after the visit and documentation and planning in coordination of care. Subjective Date Seen: 09/07/23 Interval history: Patient reports feeling somewhat better this morning, as far as feeling less shaky and more coherent. Continues to have abdominal discomfort and bloating. Has not had a bowel movement for 3 days following a course of diarrhea. Also had poor oral intake prior to admission. Admits to increased pain with increased levels of clear fluids. Vomited after eating a whole popsicle yesterday. Has otherwise remained afebrile. Denies headache or dizziness. Shakiness improved. Exam Narrative: Exam Narrative: PHYSICAL EXAM General: Pleasant, conversant, NAD HEENT: Normocephalic, atraumatic, sclera white, EOMI, oral mucosa moist Cardiovascular: RRR, S1S2. No pitting edema Pulmonary: CTA bilaterally without rhonchi, rales, expiratory wheezes. No dyspnea Abdominal: Soft, mild distension, mild diffuse tenderness, no guarding Neurological: Alert, answering questions appropriately, cranial nerves intact, no focal findings Extremities: Upper extremities less tremulous, No gross joint deformity or swelling. AROMI. Neurovascularly intact Skin: Warm, dry. Const: Vital Signs, click to edit/add: Vital Signs - 24 hr 09/05/23 15:20 09/05/23 15:20 09/05/23 15:20 Temperature 98.9 F Pulse Rate Pulse Rate [Pulse Oximeter] 92 Respiratory Rate 18 Blood Pressure [Ri ght Arm] 142/85 H Pulse Oximetry 96 96 96 Oxygen Delivery Me thod Room Air Room Air 09/05/23 16:00 09/05/23 16:50 09/05/23 17:00 Temperature Pulse Rate 77 Pulse Rate [Pulse Oximeter] 87 77 Respiratory Rate 18 16 Blood Pressure [Ri ght Arm] 137/88 123/76 Pulse Oximetry 96 97 Oxygen Delivery Me thod Room Air Room Air 09/05/23 19:45 09/05/23 20:00 09/05/23 22:00 Temperature 98.5 F Pulse Rate 77 Pulse Rate [Pulse Oximeter] 87 81 Respiratory Rate 16 16 Blood Pressure [Ri ght Arm] 126/80 137/87 Pulse Oximetry 99 94 Oxygen Delivery Me thod Room Air Room Air 09/05/23 23:00 09/06/23 00:00 09/06/23 02:00 Temperature Pulse Rate Pulse Rate [Pulse Oximeter] 73 74 Respiratory Rate 16 16 16 Blood Pressure [Ri ght Arm] 135/81 118/90 H Pulse Oximetry 96 94 Oxygen Delivery Me thod Room Air Room Air 09/06/23 05:00 09/06/23 07:00 09/06/23 07:00 Temperature 98.3 F 98.4 F Pulse Rate Pulse Rate [Pulse Oximeter] 73 79 79 Respiratory Rate 16 16 16 Blood Pressure [Ri ght Arm] 118/84 129/81 Pulse Oximetry 94 97 Oxygen Delivery Me thod Room Air Room Air 09/06/23 07:35 09/06/23 09:54 09/06/23 11:00 Temperature 98.4 F 98.0 F 98.3 F Pulse Rate Pulse Rate [Pulse Oximeter] 79 84 76 Respiratory Rate 16 18 16 Blood Pressure [Ri ght Arm] 129/81 108/65 126/75 Pulse Oximetry 97 97 97 Oxygen Delivery Me thod Room Air Room Air Room Air 09/06/23 11:00 09/06/23 14:00 Temperature 98.3 F 98.3 F Pulse Rate Pulse Rate [Pulse Oximeter] 75 79 Respiratory Rate 16 16 Blood Pressure [Ri ght Arm] 126/75 125/76 Pulse Oximetry 97 93 Oxygen Delivery Me thod Room Air Room Air Labs Labs: Laboratory Results - last 24 hr 09/05/23 09/05/23 09/05/23 10:38 13:00 15:04 WBC RBC Hgb Hct MCV MCH MCHC Plt Count INR 0.94 VBG pH VBG pCO2 VBG pO2 VBG HCO3 Sodium Potassium Chloride Carbon Dioxide Anion Gap BUN Creatinine Estimated Creat Clear Estimated GFR Glucose Lactate Calcium Ionized Calcium Parag Phosphorus Magnesium 1.3 L Iron TIBC % Saturation Ferritin Total Bilirubin Direct Bilirubin GGT 504 H AST ALT Alkaline Phosphatase Troponin I C-Reactive Protein Total Protein Albumin Lipase TSH 1.920 Urine Opiates Screen POSITIVE A Ur Oxycodone Screen Negative Urine Methadone Screen Negative Ur Barbiturates Screen POSITIVE A U Tricyclic Antidepress Negative Ur Phencyclidine Scrn Negative Ur Amphetamines Screen Negative U Methamphetamines Scrn Negative U Benzodiazepines Scrn Negative Urine Cocaine Screen Negative U Marijuana (THC) Screen Negative Ur Drug Screen Comment See Note Lab Acknowledgement Test Added 09/05/23 09/06/23 15:13 06:55 WBC 5.57 RBC 2.98 L Hgb 10.5 L Hct 32.3 L MCV 108 H MCH 35 H MCHC 33 Plt Count 102 L INR VBG pH 7.390 VBG pCO2 42 VBG pO2 32.0 VBG HCO3 26 Sodium 136 Potassium 3.4 L Chloride 100 Carbon Dioxide 25 Anion Gap 11 BUN 17 Creatinine 0.9 Estimated Creat Clear 48.78 Estimated GFR 72 Glucose 125 H Lactate 1.0 Calcium 8.7 Ionized Calcium [place] 1.29 Phosphorus 3.4 Magnesium Iron 46 TIBC 211 L % Saturation 22 Ferritin 861.0 H Total Bilirubin 0.8 Direct Bilirubin 0.1 GGT AST 115 H ALT 83 H Alkaline Phosphatase 98 Troponin I < 0.01 L C-Reactive Protein 3.1 H 3.3 H Total Protein 6.9 Albumin 4.0 Lipase 06346 H TSH Urine Opiates Screen Ur Oxycodone Screen Urine Methadone Screen Ur Barbiturates Screen U Tricyclic Antidepress Ur Phencyclidine Scrn Ur Amphetamines Screen U Methamphetamines Scrn U Benzodiazepines Scrn Urine Cocaine Screen U Marijuana (THC) Screen Ur Drug Screen Comment Lab Acknowledgement
[2023-09-07 07:13] LABS: Albumin* 3.2 g/dL (3.3-5.0)
[2023-09-07 07:14] LABS: Chloride* 101 mmol/L (96-114); Potassium* 3.2 mmol/L (3.6-5.1); Sodium* 133 mmol/L (135-149)
[2023-09-07 07:16] LABS: Anion Gap 9 mEq/L (7-15); Aspartate Amino Transferase* 75 U/L (12-35); Bilirubin Total* 0.4 mg/dL (0.1-1.5); Carbon Dioxide* 23 mmol/L (20-32); Creatinine* 0.8 mg/dL (0.5-1.5); Est. Creatinine Clearance* 46.14; Estimated Glomerular Filt Rate 83 ml/min
[2023-09-07 07:17] LABS: Alanine Aminotransferase* 57 U/L (4-35); Alkaline Phosphatase* 79 U/L (40-150); Blood Urea Nitrogen* 13 mg/dL (7-30); Glucose* 79 mg/dL (60-115); Magnesium* 1.6 mg/dL (1.5-2.6)
[2023-09-07 08:18] LABS: Lipase* 16053 U/L (23-300)
[2023-09-07] MEDS: MULTIVITAMIN/MINERALS 1 TABLET 1 TAB PO (08:29)
[2023-09-07] MEDS: ATORVASTATIN 10 MG TABLET 20 MG PO (08:29)
[2023-09-07] MEDS: hydroCHLOROthiazide 12.5 MG CAPSULE PO (08:29)
[2023-09-07] MEDS: LOSARTAN POTASSIUM 50 MG TABLET 100 MG PO (08:29)
[2023-09-07] MEDS: AMLODIPINE 5 MG TABLET 2.5 MG PO (08:30)
[2023-09-07] MEDS: THIAMINE 100 MG TABLET PO (08:36)
[2023-09-07] MEDS: FOLIC ACID 1 MG TABLET PO (08:36)
[2023-09-07] MEDS: POTASSIUM CHLORIDE 10 MEQ/100 ML PIGGYBACK 100 MEQ IVPB ×3 (08:44→10:26)
--- NOTE | 2023-09-07 09:15 | CRLHL7_ITS ---
For Patients: As a result of the Century Cures Act, medical imaging exams and procedure reports are released immediately into your electronic medical record. You may view this report before your referring provider. If you have questions, please contact your health care provider. INDICATION: Abdominal pain; abdominal distention. COMPARISON: CT abdomen and pelvis with intravenous contrast September 05, 2023. TECHNIQUE: Portable AP radiograph abdomen. FINDINGS: There is minimal dilatation of the right colon with the cecum measuring 5.9 cm. Calcification in the pelvis secondary to calcified uterine fibroid. IMPRESSION: Negative KUB. Dictated by Jill Hermosillo MD @ 09/07/2023 11:29:59 AM (Electronically Signed)
[2023-09-07] MEDS: SENNOSIDES/DOCUSATE TABLET 1 TAB PO ×2 (09:39→20:53)
--- NOTE | 2023-09-07 15:10 | PC.NURSE ---
Patient alert and orientedx4. CIWA negative all shift. Complains of abdominal pain which was managed by PRN pain medication which was not too effective. Patient continues to rate pain 7/10. Ambulates in the hallway independltly. Continues on 75ml/hr LR. Vitals signs stable
[2023-09-07] MEDS: ENOXAPARIN 30 MG/0.3ML INJ SUBCUT (16:18)
--- NOTE | 2023-09-07 19:20 | PC.NURSE ---
End of shift-- Pleasant and cooperative, alert and oriented patient. VSS and pt is afebrile. SPO2 maintained >94% on RA. Pt continues to c/o abdominal pain which she rated from 6-7 today and appears well managed with Dilaudid and Toradol PRN. Abdominal distension is improved from yesterday and pt has not had any further emesis since yesterday. Tolerating sips of clear liquids. CIWAs 1 today and shakiness appears improved. LS CTA. BS+ x4. Telemetry shows NSR. Pt ambulating hallways independently. Son was at bedside this evening and appears loving and supportive.
[2023-09-07] MEDS: GABAPENTIN 300 MG CAPSULE PO (20:53)
[2023-09-08] VITALS (11 sets, daily range): BP systolic 104–145; BP diastolic 64–88; PULSE 85–113; RESP 16–20; TEMP 36.9–38.8; O2SAT 91–94
[2023-09-08] MEDS: KETOROLAC 30 MG/ML inj IVP ×2 (00:14→06:04)
[2023-09-08] MEDS: SODIUM CHLORIDE 0.9 % (FLUSH) 10 ML SYRINGE 5 ML IVF ×3 (00:15→20:51)
[2023-09-08] MEDS: LACTATED RINGERS 1000 ML 1,000 ML 75 ML IV ×2 (04:06→16:21)
[2023-09-08] MEDS: OMEPRAZOLE 20 MG CAPSULE DR 40 MG PO (06:02)
[2023-09-08] MEDS: HYDROmorphone 0.5 mg/0.5 ml inj IVP ×2 (06:04→09:57)
--- NOTE | 2023-09-08 06:30 | PC.NURSE ---
: Rates abd pain 01/18, see eMAR. No nausea. 1x sm BM per patient. VSS.
[2023-09-08 06:39] LABS: Hematocrit 27.8 % (33.0-51.0); Mean Corpuscular HGB Conc 32 gm/dL (32-36); Mean Corpuscular Hemoglobin 35 pg (26-34); Mean Corpuscular Volume 109 fL (80-100); Platelet Count* 111 K/uL (140-440); Red Blood Count 2.55 m/uL (4.00-5.20); White Blood Count* 6.67 K/uL (4.50-11.00)
[2023-09-08 06:50] LABS: Albumin* 3.1 g/dL (3.3-5.0); Slide Review Reflex No
[2023-09-08 06:51] LABS: Chloride* 102 mmol/L (96-114); Potassium* 3.4 mmol/L (3.6-5.1); Sodium* 135 mmol/L (135-149)
[2023-09-08 06:53] LABS: Anion Gap 7 mEq/L (7-15); Aspartate Amino Transferase* 64 U/L (12-35); Bilirubin Total* 0.6 mg/dL (0.1-1.5); Carbon Dioxide* 26 mmol/L (20-32); Creatinine* 0.7 mg/dL (0.5-1.5); Est. Creatinine Clearance* 49.72; Estimated Glomerular Filt Rate 97 ml/min
[2023-09-08 06:54] LABS: Alanine Aminotransferase* 45 U/L (4-35); Alkaline Phosphatase* 98 U/L (40-150); Blood Urea Nitrogen* 11 mg/dL (7-30); Calcium* 7.8 mg/dL (8.4-10.6); Glucose* 66 mg/dL (60-115); Total Protein* 5.9 g/dL (6.0-8.3)
[2023-09-08 07:24] LABS: Lipase* 7223 U/L (23-300)
[2023-09-08] MEDS: SENNOSIDES/DOCUSATE TABLET 1 TAB PO (09:57)
[2023-09-08] MEDS: LOSARTAN POTASSIUM 50 MG TABLET 100 MG PO (09:57)
[2023-09-08] MEDS: ATORVASTATIN 10 MG TABLET 20 MG PO (09:57)
[2023-09-08] MEDS: MULTIVITAMIN/MINERALS 1 TABLET 1 TAB PO (09:57)
[2023-09-08] MEDS: AMLODIPINE 5 MG TABLET 2.5 MG PO (09:57)
[2023-09-08] MEDS: THIAMINE 100 MG TABLET PO (09:58)
[2023-09-08] MEDS: hydroCHLOROthiazide 12.5 MG CAPSULE PO (09:58)
[2023-09-08] MEDS: FOLIC ACID 1 MG TABLET PO (09:58)
--- NOTE | 2023-09-08 10:27 | PM.IMPN1 ---
Progress Note: A&P Assessment and plan (1) Acute pancreatitis: Problem details: - by imaging uncomplicated - analgesia, antiemetics, rehydration - nausea, vomiting, diarrhea resolved - clear liquid diet - continue to trend labs, CMP, lipase - improving, trending down 09/07: Labs trending down, lipase remains significantly elevated >90949 (down from 19,000). Discussed clear liquid diet in small amounts, taking it slowly so as to decrease pain, nausea/vomiting. Suspect by doing this, these symptoms will improve. Will need to continue to monitor closely. Abdominal x-ray obtained for bloating/discomfort showing minimal dilatation of the right colon. Senna b.i.d. scheduled, simethicone p.r.n.. Consider complete abdomen ultrasound if new or worsening symptoms or no resolve. CT had shown small volume low-density pelvic ascites. 09/08: Lipase 7223. Continue IVF. Advance diet - slowly. Discontinue Dilaudid, discussed decreasing use/need for narcotics as she is improving. Status: Acute (2) Alcohol withdrawal: Problem details: -last drink (relates 2-3 glasses of wine daily; sometimes a bloody isak) on 09/03. CIWA protocol -Ativan per protocol. -phenobarb, 260 mg load x1 (has not needed any further dosing) -thiamine, folate, MVI -okay for med surg status on 09/06 -UDS with opiates and barbiturates otherwise negative Status: Acute (3) Diarrhea: Problem details: -stool cultures and C diff pending - discontinued these labs as no further stools since admission Status: Acute (4) Alcoholic liver disease: Problem details: -stigmata to include low platelets, elevated MCV, low sodium, transaminitis, hyperbilirubinemia -continue to trend labs, improving -outpatient follow-up Status: Acute (5) Alcohol use disorder: Problem details: -minimal acknowledgement -delinquency prevention social worker for CD eval Friday -mireya also drinking daily, per patient, sounds as though he may be difficult support, making excuses for both of them Status: Acute (6) Hypertension: Problem details: -continue Amlodipine, losartan, hydrochlorothiazide Status: Acute (7) Hyperlipidemia: Problem details: -continue statin Status: Acute (8) Thrombocytopenia: Problem details: -in setting of chronic alcohol abuse -platelets low, stable. Continue to monitor. May need to stop enoxaparin for another prophylactic if trends too low Status: Acute (9) Anemia: Problem details: -in setting of chronic alcohol abuse -hemoglobin 9.3, down from 12.1, likely somewhat dilutional. RBC 2.62, hematocrit 28, iron 46, TIBC 211, ferritin 861 -With low TIBC, normal Iron, and high ferritin, recommendation for alcohol abstinence. Outpatient follow-up with PCP Status: Acute (10) Hypokalemia: Problem details: -Potassium 3.2, down from 3.4 -3 bumps IV potassium chloride ordered given abdominal discomfort, nausea. 09/08: Potassium 3.4. Oral supplement added as tolerating orals now Status: Acute (11) Bacteriuria: Problem details: -prelim urine culture growing Gram-negative rods. Asymptomatic. Defer antibiotics for now 09/08: Acute symptomatic cystitis. UC growing E coli, sensitivities reviewed, symptomatic with suprapubic pain this morning. Start Cipro 500 mg p.o. b.i.d. x6 doses Status: Acute Plan Continue to advance diet as tolerated. Hopeful discharge 09/09/23 Time Spent With Patient Total time spent: Total time spent caring for the patient today was 45 minutes. This includes time spent for the visit reviewing the chart, time spent during the visit, time spent after the visit and documentation and planning in coordination of care. Subjective Date Seen: 09/08/23 Interval history: Patient reports upper abdominal pain continues to improve. Sore mostly with movement. Tolerating clears without nausea vomiting. Is now complaining of suprapubic pain without other UTI symptoms. Has had 2 bowel movements since last night. Ambulating frequently throughout the day. Exam Narrative: Exam Narrative: PHYSICAL EXAM General: Pleasant, conversant, NAD HEENT: Normocephalic, atraumatic, sclera white, EOMI, oral mucosa moist Cardiovascular: RRR, S1S2. No pitting edema Pulmonary: CTA bilaterally without rhonchi, rales, expiratory wheezes. No dyspnea Abdominal: Soft, no distension, suprapubic mild tenderness, no guarding Neurological: Alert, answering questions appropriately, cranial nerves intact, no focal findings Extremities: Tremors have resolved. No gross joint deformity or swelling. AROMI. Neurovascularly intact Skin: Warm, dry. Const: Vital Signs, click to edit/add: Vital Signs - 24 hr 09/07/23 11:00 09/07/23 11:33 09/07/23 15:00 Temperature 99.4 F Pulse Rate Pulse Rate [Pulse Oximeter] 95 Respiratory Rate 18 Blood Pressure [Ri ght Arm] 125/82 Pulse Oximetry 94 97 Oxygen Delivery Me thod Room Air 09/07/23 15:00 09/07/23 15:00 09/07/23 16:15 Temperature 98.7 F 98.7 F Pulse Rate Pulse Rate [Pulse Oximeter] 98 98 98 Respiratory Rate 18 18 Blood Pressure [Ri ght Arm] 104/63 104/63 Pulse Oximetry 96 96 Oxygen Delivery Me thod Room Air Room Air 09/07/23 17:10 09/07/23 20:30 09/07/23 23:00 Temperature 99 F Pulse Rate 90 90 Pulse Rate [Pulse Oximeter] 96 Respiratory Rate 18 Blood Pressure [Ri ght Arm] 124/75 Pulse Oximetry 96 Oxygen Delivery Me thod Room Air 09/08/23 00:00 09/08/23 03:00 09/08/23 07:00 Temperature 98.9 F Pulse Rate Pulse Rate [Pulse Oximeter] 98 85 90 Respiratory Rate 18 18 18 Blood Pressure [Ri ght Arm] 127/80 Pulse Oximetry 92 Oxygen Delivery Me thod Room Air Room Air 09/08/23 07:00 09/08/23 07:00 09/08/23 08:00 Temperature 98.9 F 98.9 F Pulse Rate 86 Pulse Rate [Pulse Oximeter] 90 90 Respiratory Rate 18 18 Blood Pressure [Ri ght Arm] 126/79 Pulse Oximetry 92 92 Oxygen Delivery Me thod Room Air Room Air Labs Labs: Laboratory Results - last 24 hr 09/08/23 05:56 WBC 6.67 RBC 2.55 L Hgb 9.0 L Hct 27.8 L MCV 109 H MCH 35 H MCHC 32 Plt Count 111 L Sodium 135 Potassium 3.4 L Chloride 102 Carbon Dioxide 26 Anion Gap 7 BUN 11 Creatinine 0.7 Estimated Creat Clear 49.72 Estimated GFR 97 Glucose 66 Calcium 7.8 L Total Bilirubin 0.6 AST 64 H ALT 45 H Alkaline Phosphatase 98 Total Protein 5.9 L Albumin 3.1 L Lipase 7223 H
[2023-09-08] MEDS: POTASSIUM CHLORIDE 10 MEQ CAPSULE ER 20 MEQ PO ×2 (10:38→18:02)
[2023-09-08] MEDS: CIPROFLOXACIN 500 MG TABLET PO ×2 (10:38→20:51)
[2023-09-08] MEDS: OXYCODONE 5 MG TABLET PO ×3 (12:42→22:53)
[2023-09-08] MEDS: ENOXAPARIN 30 MG/0.3ML INJ SUBCUT (15:33)
[2023-09-08] MEDS: GABAPENTIN 300 MG CAPSULE PO (20:51)
[2023-09-08] MEDS: ACETAMINOPHEN 325 MG TABLET 650 MG PO (21:37)
[2023-09-09] VITALS (7 sets, daily range): BP systolic 105–137; BP diastolic 70–82; PULSE 90–111; RESP 16–18; TEMP 36.6–37.9; O2SAT 93–95
[2023-09-09] MEDS: SIMETHICONE 80 MG TAB.CHEW 160 MG PO (03:27)
[2023-09-09] MEDS: OXYCODONE 5 MG TABLET PO ×3 (03:27→15:49)
[2023-09-09] MEDS: DIPHENOXYLATE-ATROP 2.5-0.025 TABLET 1 TAB PO (03:28)
[2023-09-09] MEDS: LACTATED RINGERS 1000 ML 1,000 ML 75 ML IV (05:31)
[2023-09-09] MEDS: OMEPRAZOLE 20 MG CAPSULE DR 40 MG PO (06:28)
[2023-09-09 06:31] LABS: Hematocrit 27.3 % (33.0-51.0); Hemoglobin* 8.7 gm/dL (12.0-16.0); Mean Corpuscular HGB Conc 32 gm/dL (32-36); Mean Corpuscular Hemoglobin 35 pg (26-34); Mean Corpuscular Volume 110 fL (80-100); Platelet Count* 169 K/uL (140-440); Red Blood Count 2.49 m/uL (4.00-5.20); White Blood Count* 7.04 K/uL (4.50-11.00)
[2023-09-09 06:37] LABS: Slide Review Reflex No
[2023-09-09 06:43] LABS: Albumin* 3.1 g/dL (3.3-5.0); Chloride* 105 mmol/L (96-114); Sodium* 136 mmol/L (135-149)
[2023-09-09 06:44] LABS: Potassium* 3.6 mmol/L (3.6-5.1)
[2023-09-09 06:46] LABS: Alanine Aminotransferase* 41 U/L (4-35); Alkaline Phosphatase* 104 U/L (40-150); Anion Gap 6 mEq/L (7-15); Aspartate Amino Transferase* 60 U/L (12-35); Bilirubin Total* 0.4 mg/dL (0.1-1.5); Blood Urea Nitrogen* 10 mg/dL (7-30); Calcium* 7.4 mg/dL (8.4-10.6); Carbon Dioxide* 25 mmol/L (20-32); Creatinine* 0.8 mg/dL (0.5-1.5); Est. Creatinine Clearance* 49.72; Estimated Glomerular Filt Rate 83 ml/min; Glucose* 87 mg/dL (60-115); Total Protein* 5.9 g/dL (6.0-8.3)
[2023-09-09 06:56] LABS: Lipase* 2856 U/L (23-300)
--- NOTE | 2023-09-09 07:54 | PC.NURSE ---
end of shift note: ciwa scores 0's this shift. x10 lg loose/diarrhea stools per pt report. bm observed by this nurse to be small and soft. prn meds administered for abd discomfort; see emar. abd/pelvic pain 6-02/17 with relief from prn oxycodone.
[2023-09-09] MEDS: POTASSIUM CHLORIDE 10 MEQ CAPSULE ER 20 MEQ PO ×2 (09:19→18:29)
[2023-09-09] MEDS: ATORVASTATIN 10 MG TABLET 20 MG PO (09:19)
[2023-09-09] MEDS: AMLODIPINE 5 MG TABLET 2.5 MG PO (09:19)
[2023-09-09] MEDS: FOLIC ACID 1 MG TABLET PO (09:20)
[2023-09-09] MEDS: MULTIVITAMIN/MINERALS 1 TABLET 1 TAB PO (09:20)
[2023-09-09] MEDS: hydroCHLOROthiazide 12.5 MG CAPSULE PO (09:20)
[2023-09-09] MEDS: LOSARTAN POTASSIUM 50 MG TABLET 100 MG PO (09:20)
[2023-09-09] MEDS: CIPROFLOXACIN 500 MG TABLET PO (09:20)
[2023-09-09] MEDS: THIAMINE 100 MG TABLET PO (09:21)
[2023-09-09] MEDS: SODIUM CHLORIDE 0.9 % (FLUSH) 10 ML SYRINGE 5 ML IVF ×2 (09:21→20:50)
--- NOTE | 2023-09-09 09:22 | CRLHL7_ITS ---
For Patients: As a result of the Cures Act, medical imaging exams and procedure reports are released immediately into your electronic medical record. You may view this report before your referring provider. If you have questions, please contact your health care provider. INDICATION: FEVER AND COUGH TECHNIQUE: Chest 1 view COMPARISON: None FINDINGS: Small bilateral pleural effusions are present. There is no pneumothorax. Cardiac silhouette is not enlarged. Degenerative changes noted. Mild bibasilar densities are present. IMPRESSION: Small pleural effusions with lower lung volumes and bibasilar densities representing atelectasis or infiltrates. Dictated by Soham Petty MD @ 09/09/2023 9:53:48 AM (Electronically Signed)
[2023-09-09 09:23] LABS: Lab Add On Test New Spec Needed
[2023-09-09] MEDS: ACETAMINOPHEN 325 MG TABLET 650 MG PO ×2 (09:27→15:49)
--- NOTE | 2023-09-09 10:32 | PM.IMPN1 ---
Progress Note: A&P Assessment and plan (1) Acute pancreatitis: Problem details: - by imaging uncomplicated 09/07: Labs trending down, lipase remains significantly elevated >45484 (down from 19,000). Discussed clear liquid diet in small amounts, taking it slowly so as to decrease pain, nausea/vomiting. Suspect by doing this, these symptoms will improve. Will need to continue to monitor closely. Abdominal x-ray obtained for bloating/discomfort showing minimal dilatation of the right colon. Senna b.i.d. scheduled, bettye p.r.n.. Consider complete abdomen ultrasound if new or worsening symptoms or no resolve. CT had shown small volume low-density pelvic ascites. 09/08: Lipase 7223. Continue IVF. Advance diet - slowly. Discontinue Dilaudid, discussed decreasing use/need for narcotics as she is improving. 09/09: Lipase just over 2000. Discontinue IVF as tolerating diet. Continue to advance diet as tolerated. Should not need narcotics at this point. Status: Acute (2) Alcohol withdrawal: Problem details: -last drink (relates 2-3 glasses of wine daily; sometimes a bloody isak) on 09/03 -phenobarb, 260 mg load x1 (has not needed any further dosing) -CIWA/Ativan per protocol - discontinued 09/09 -continue oral thiamine, folate, MVI -UDS with opiates and barbiturates otherwise negative Status: Acute (3) Diarrhea: Problem details: -stool cultures and C diff pending - discontinued these labs as no further stools since admission 09/09: Patient had been started on b.i.d. stool softener several days ago secondary to abdominal distention/discomfort. Patient reporting diarrhea stools x 24 hours, nursing staff reporting soft formed stools. C diff and GI pathogen ordered if diarrhea stools. She was started on Cipro for UTI yesterday. Status: Acute (4) Alcoholic liver disease: Problem details: -stigmata to include low platelets, elevated MCV, low sodium, transaminitis, hyperbilirubinemia -continue to trend labs, improving -outpatient follow-up Status: Acute (5) Alcohol use disorder: Problem details: -minimal acknowledgement -health care social worker for CD micki -beatrize also drinking daily, per patient, sounds as though he may be difficult support, making excuses for both of them Status: Acute (6) Hypertension: Problem details: -continue Amlodipine, losartan, hydrochlorothiazide Status: Acute (7) Hyperlipidemia: Problem details: -continue statin Status: Acute (8) Thrombocytopenia: Problem details: -in setting of chronic alcohol abuse -platelets low, stable. Continue to monitor. May need to stop enoxaparin for another prophylactic if trends too low Status: Acute (9) Anemia: Problem details: -in setting of chronic alcohol abuse -hemoglobin has trended down likely somewhat dilutional. Patient denies report of active bleed, bloody stools, hematuria. -RBC 2.62, hematocrit 28, iron 46, TIBC 211, ferritin 861 -With low TIBC, normal Iron, and high ferritin, recommendation for alcohol abstinence. Outpatient follow-up with PCP 09/09: DC maintenance LR as tolerating orals Status: Acute (10) Hypokalemia: Problem details: -Potassium 3.2, down from 3.4 -3 bumps IV potassium chloride ordered given abdominal discomfort, nausea. 09/08: Potassium 3.4. Oral supplement b.i.d. added as tolerating orals now. Improved to 3.6, continue to monitor Status: Acute (11) UTI (urinary tract infection): Problem details: -prelim urine culture growing Gram-negative rods. Asymptomatic. Defer antibiotics for now 09/08: UC growing E coli, sensitivities reviewed, symptomatic with suprapubic pain this morning. Start Cipro 500 mg p.o. b.i.d. x6 doses 09/09: Developed fevers up to 101.8? overnight. DC Cipro. Start ceftriaxone, UC sensitive Status: Acute (12) Fever: Problem details: -101.8? overnight. Reports not feeling well. -Reports cough onset yesterday. CXR shows bibasilar densities, ?Pneumonia. -increased stools, stool softener discontinued, GI pathogen/C diff ordered -start IV ceftriaxone 1 g Q 24, azithromycin 500 mg x3 doses. Stop ciprofloxacin. NS 500 mL bolus -no leukocytosis, BC x2 pending, lactate 1.5, procalcitonin ordered Status: Acute Plan Further workup fever Time Spent With Patient Total time spent: Total time spent caring for the patient today was 45 minutes. This includes time spent for the visit reviewing the chart, time spent during the visit, time spent after the visit and documentation and planning in coordination of care. Subjective Date Seen: 09/09/23 Interval history: Patient is seen this morning. As of yesterday, plan was to discharge to home today. Patient developed fevers up to 101.8? overnight. She reports feeling crummy this morning. Irritated that staff keep coming into her room. Tells me she had several diarrhea stools since yesterday. Nursing reports stools actually been soft and formed. She was started on oral ciprofloxacin for a UTI, UC growing E coli. She reports a cough since yesterday afternoon. Has otherwise tolerated advancing diet without nausea vomiting. CIWA scores have remained 0 Exam Narrative: Exam Narrative: PHYSICAL EXAM General: More anxious and irritable this morning HEENT: Normocephalic, atraumatic, sclera white, EOMI, oral mucosa moist Cardiovascular: RRR, S1S2. No pitting edema Pulmonary: CTA bilaterally without rhonchi, rales, expiratory wheezes. No dyspnea Abdominal: Soft, no distension, suprapubic mild tenderness, no guarding. Upper quadrant pain has resolved Neurological: Alert, answering questions appropriately, cranial nerves intact, no focal findings Extremities: Tremors have resolved. No gross joint deformity or swelling. AROMI. Neurovascularly intact Skin: Warm, dry. Const: Vital Signs, click to edit/add: Vital Signs - 24 hr 09/08/23 11:00 09/08/23 12:00 09/08/23 15:00 Temperature 99.1 F 99.1 F Pulse Rate 92 Pulse Rate [Pulse Oximeter] 99 99 Respiratory Rate 18 18 Blood Pressure [Le ft Arm] Blood Pressure [Ri ght Arm] 130/81 104/65 Pulse Oximetry 93 93 Oxygen Delivery Me thod Room Air Room Air 09/08/23 15:00 09/08/23 15:00 09/08/23 15:00 Temperature 100.8 F H Pulse Rate Pulse Rate [Pulse Oximeter] 113 H 113 H Respiratory Rate 20 20 Blood Pressure [Le ft Arm] Blood Pressure [Ri ght Arm] 131/78 Pulse Oximetry 91 91 Oxygen Delivery Me thod Room Air 09/08/23 16:00 09/08/23 20:30 09/08/23 20:30 Temperature 100.8 F H 101.8 F H Pulse Rate 103 H Pulse Rate [Pulse Oximeter] 113 H 102 H Respiratory Rate 20 18 Blood Pressure [Le ft Arm] Blood Pressure [Ri ght Arm] 131/78 145/88 H Pulse Oximetry 91 94 Oxygen Delivery Me thod Room Air Room Air 09/08/23 20:30 09/08/23 21:37 09/08/23 22:50 Temperature 101.8 F H 98.4 F Pulse Rate Pulse Rate [Pulse Oximeter] 102 H 92 Respiratory Rate 18 16 Blood Pressure [Le ft Arm] Blood Pressure [Ri ght Arm] 122/64 Pulse Oximetry 94 Oxygen Delivery Me thod Room Air 09/08/23 22:50 09/09/23 03:00 09/09/23 09:10 Temperature 98.4 F 97.8 F Pulse Rate 91 Pulse Rate [Pulse Oximeter] 92 90 Respiratory Rate 16 18 Blood Pressure [Le ft Arm] Blood Pressure [Ri ght Arm] 122/64 130/81 Pulse Oximetry 93 95 Oxygen Delivery Me thod Room Air Room Air 09/09/23 09:10 09/09/23 09:10 Temperature 100.2 F H Pulse Rate Pulse Rate [Pulse Oximeter] 111 H 111 H Respiratory Rate 18 18 Blood Pressure [Le ft Arm] 137/77 Blood Pressure [Ri ght Arm] Pulse Oximetry 94 Oxygen Delivery Me thod Room Air Labs Labs: Laboratory Results - last 24 hr 09/09/23 09/09/23 06:00 09:20 WBC 7.04 RBC 2.49 L Hgb 8.7 L Hct 27.3 L MCV 110 H MCH 35 H MCHC 32 Plt Count 169 Sodium 136 Potassium 3.6 Chloride 105 Carbon Dioxide 25 Anion Gap 6 L BUN 10 Creatinine 0.8 Estimated Creat Clear 49.72 Estimated GFR 83 Glucose 87 Calcium 7.4 L Total Bilirubin 0.4 AST 60 H ALT 41 H Alkaline Phosphatase 104 Total Protein 5.9 L Albumin 3.1 L Lipase 2856 H Lab Acknowledgement New Spec Needed
[2023-09-09 10:54] LABS: Lactate* 1.5 mmol/L (0.5-1.9)
[2023-09-09] MEDS: cefTRIAXone 1 GM in 0.9 % SODIUM CHLORIDE Mini-bag 100 ML IVPB (11:22)
[2023-09-09 11:35] LABS: Procalcitonin* 0.14 ng/mL (<0.50)
[2023-09-09] MEDS: AZITHROMYCIN 500 MG in 0.9 % SODIUM CHLORIDE 250 ml 250 ML 255 MG IVPB (12:35)
[2023-09-09 12:36] LABS: C.Difficile Negative (Negative); CDIFFEPI 027 Presumptive Negative (Negative)
[2023-09-09] MEDS: 0.9 % SODIUM CHLORIDE 500 ML 500 ML IV (12:37)
[2023-09-09] MEDS: ENOXAPARIN 30 MG/0.3ML INJ SUBCUT (15:50)
--- NOTE | 2023-09-09 18:29 | P.EN_ITS ---
Chart Event Note Time Seen by Provider: 18:30 Date Seen: 09/09/23 Chart Event Note: Patient slowly developed throughout the day a pruritic, maculopapular, erythematous skin eruption on her back and posterior thighs. Lungs are clear to auscultation. CXR reviewed and no obvious infiltrates seen. UC growing greater than 100,000 CFU/ml of E. Coli. The concern is that she may be having an allergic reaction to one of the antibiotics she received: ciprofloxacin, ceftriaxone, and azithromycin. The ciprofloxacin was stopped already. Most likely it is the ciprofloxacin, which could explain her fever yesterday/today also. She received only a singly dose of the ceftriaxone and the azithromycin lat this morning. I doubt she has a pneumonia. She may have an E. Coli UTI, or it may be contamination and less likely colonization, but possible. She has minimal symptoms, and UA is Nitrite ne gative. She may have a contaminant. I am holding the ceftriaxone and the azithromycin at this time. Additionally, diphenhydramine 25 mg q 4 hours PRN itching.
[2023-09-09] MEDS: diphenhydrAMINE 25 MG CAPSULE PO (19:24)
--- NOTE | 2023-09-09 19:34 | PC.NURSE ---
Nursing Care Hours: [id number] Nursing Informatics Specialist did cares from 02-18 then observed Tonya VENEGAS orient. Pt c/o low abdomen pain, treated per eMAR. c/o loose frequent stools, decreased this morning from NOC. Stool collected and sent to labs. Bill romero. Precautions in place for pending labs. Elevated temp. Noted some tremors, BARBARA young. Tele NSR.
[2023-09-09] MEDS: GABAPENTIN 300 MG CAPSULE PO (20:50)
[2023-09-10] MEDS: OXYCODONE 5 MG TABLET PO ×2 (02:29→09:30)
[2023-09-10] MEDS: ACETAMINOPHEN 325 MG TABLET 650 MG PO (02:29)
[2023-09-10 02:30] VITALS: BP 141/74; PULSE 111; RESP 18; TEMP 38.1; O2SAT 92
[2023-09-10] MEDS: OMEPRAZOLE 20 MG CAPSULE DR 40 MG PO (06:11)
--- NOTE | 2023-09-10 06:32 | PC.NURSE ---
[id number] pt rested well during night, after prn benadryl itching subsided, rash still present to back and posterior thighs but subsiding in intensity/redness. no N/V, tolerating clears. pain to lower abd, prn pain medication x1 during night. no BM during night.
[2023-09-10 07:00] VITALS: BP 130/75; PULSE 88; RESP 18; TEMP 37.1; O2SAT 95
[2023-09-10 07:16] LABS: Hematocrit 25.6 % (33.0-51.0); Hemoglobin* 8.1 gm/dL (12.0-16.0); Mean Corpuscular HGB Conc 32 gm/dL (32-36); Mean Corpuscular Hemoglobin 35 pg (26-34); Mean Corpuscular Volume 110 fL (80-100); Platelet Count* 243 K/uL (140-440); Red Blood Count 2.33 m/uL (4.00-5.20); White Blood Count* 6.31 K/uL (4.50-11.00)
[2023-09-10 07:18] LABS: Chloride* 109 mmol/L (96-114)
[2023-09-10 07:19] LABS: Albumin* 2.9 g/dL (3.3-5.0); Potassium* 3.5 mmol/L (3.6-5.1); Sodium* 138 mmol/L (135-149)
[2023-09-10 07:21] LABS: Anion Gap 6 mEq/L (7-15); Carbon Dioxide* 23 mmol/L (20-32); Creatinine* 0.7 mg/dL (0.5-1.5); Est. Creatinine Clearance* 49.72; Estimated Glomerular Filt Rate 97 ml/min; Slide Review Reflex No
[2023-09-10 07:22] LABS: Alanine Aminotransferase* 38 U/L (4-35); Alkaline Phosphatase* 109 U/L (40-150); Aspartate Amino Transferase* 57 U/L (12-35); Bilirubin Total* 0.3 mg/dL (0.1-1.5); Blood Urea Nitrogen* 6 mg/dL (7-30); Calcium* 7.2 mg/dL (8.4-10.6); Glucose* 97 mg/dL (60-115); Lipase* 1869 U/L (23-300); Total Protein* 5.9 g/dL (6.0-8.3)
[2023-09-10] MEDS: FOLIC ACID 1 MG TABLET PO (09:29)
[2023-09-10] MEDS: hydroCHLOROthiazide 12.5 MG CAPSULE PO (09:29)
[2023-09-10] MEDS: LOSARTAN POTASSIUM 50 MG TABLET 100 MG PO (09:29)
[2023-09-10] MEDS: diphenhydrAMINE 25 MG CAPSULE PO (09:29)
[2023-09-10] MEDS: AMLODIPINE 5 MG TABLET 2.5 MG PO (09:29)
[2023-09-10] MEDS: POTASSIUM CHLORIDE 10 MEQ CAPSULE ER 20 MEQ PO (09:30)
[2023-09-10] MEDS: ATORVASTATIN 10 MG TABLET 20 MG PO (09:30)
[2023-09-10] MEDS: MULTIVITAMIN/MINERALS 1 TABLET 1 TAB PO (09:30)
[2023-09-10] MEDS: THIAMINE 100 MG TABLET PO (09:30)
[2023-09-10] MEDS: SODIUM CHLORIDE 0.9 % (FLUSH) 10 ML SYRINGE 5 ML IVF (09:31)
--- NOTE | 2023-09-10 09:48 | PM.IMPN1 ---
Progress Note: A&P Assessment and plan (1) Acute pancreatitis: Problem details: - by imaging uncomplicated 09/07: Labs trending down, lipase remains significantly elevated >59109 (down from 19,000). Discussed clear liquid diet in small amounts, taking it slowly so as to decrease pain, nausea/vomiting. Suspect by doing this, these symptoms will improve. Will need to continue to monitor closely. Abdominal x-ray obtained for bloating/discomfort showing minimal dilatation of the right colon. Senna b.i.d. scheduled, simethicone p.r.n.. Consider complete abdomen ultrasound if new or worsening symptoms or no resolve. CT had shown small volume low-density pelvic ascites. 09/08: Lipase 7223. Continue IVF. Advance diet - slowly. Discontinue Dilaudid, discussed decreasing use/need for narcotics as she is improving. 09/09: Lipase just over 2000. Discontinue IVF as tolerating diet. Continue to advance diet as tolerated. Should not need narcotics at this point. 09/10: This has been treated appropriately, no further hospital needs. Status: Acute (2) Alcohol withdrawal: Problem details: -last drink (relates 2-3 glasses of wine daily; sometimes a bloody isak) on 09/03 -phenobarb, 260 mg load x1 (has not needed any further dosing) -CIWA/Ativan per protocol - discontinued 09/09 -continue oral thiamine, folate, MVI -UDS with opiates and barbiturates otherwise negative 09/10: No further evidence of withdrawals, CIWA has been discontinued. No further hospital needs. Status: Acute (3) Diarrhea: Problem details: -stool cultures and C diff pending - discontinued these labs as no further stools since admission 09/09: Patient had been started on b.i.d. stool softener several days ago secondary to abdominal distention/discomfort. Patient reporting diarrhea stools x 24 hours, nursing staff reporting soft formed stools. C diff and GI pathogen ordered if diarrhea stools. She was started on Cipro for UTI yesterday. 09/10: C diff negative. Remainder GI pathogen panel pending. Decreased stools overnight. Status: Acute (4) Alcoholic liver disease: Problem details: -stigmata to include low platelets, elevated MCV, low sodium, transaminitis, hyperbilirubinemia -continue to trend labs, improving -outpatient follow-up Status: Acute (5) Alcohol use disorder: Problem details: -minimal acknowledgement -health care social worker for CD micki werner also drinking daily, per patient, sounds as though he may be difficult support, making excuses for both of them Status: Acute (6) Hypertension: Problem details: -continue Amlodipine, losartan, hydrochlorothiazide Status: Acute (7) Hyperlipidemia: Problem details: -continue statin Status: Acute (8) Thrombocytopenia: Problem details: -in setting of chronic alcohol abuse -platelets low, stable. Continue to monitor. May need to stop enoxaparin for another prophylactic if trends too low Status: Acute (9) Anemia: Problem details: -in setting of chronic alcohol abuse -hemoglobin has trended down likely somewhat dilutional. Patient denies report of active bleed, bloody stools, hematuria. -RBC 2.62, hematocrit 28, iron 46, TIBC 211, ferritin 861 -With low TIBC, normal Iron, and high ferritin, recommendation for alcohol abstinence. 09/09: DC maintenance LR as tolerating orals Hemoglobin remains low in setting of chronic alcohol disease, with elevated TIBC and ferritin, normal iron levels. Will continue to monitor. Will need outpatient follow-up with PCP. Status: Acute (10) Hypokalemia: Problem details: -Potassium 3.2, down from 3.4 -3 bumps IV potassium chloride ordered given abdominal discomfort, nausea. 09/08: Potassium 3.4. Oral supplement b.i.d. added as tolerating orals now. Stable Status: Acute (11) UTI (urinary tract infection): Problem details: -prelim urine culture growing Gram-negative rods. Asymptomatic. Defer antibiotics for now 09/08: UC growing E coli, sensitivities reviewed, symptomatic with suprapubic pain this morning. Start Cipro 500 mg p.o. b.i.d. x6 doses 09/09: Developed fevers up to 101.8? overnight. DC Cipro. Start ceftriaxone, UC sensitive Status: Acute (12) Fever: Problem details: -101.8? overnight. Reports not feeling well. -Reports cough onset yesterday. CXR shows bibasilar densities, ?Pneumonia - procalcitonin negative, no significant cough or worsening -increased stools, stool softener discontinued, GI pathogen/C diff - C diff negative, GI pathogen pending -start IV ceftriaxone 1 g Q 24, azithromycin 500 mg x3 doses. Stop ciprofloxacin. NS 500 mL bolus -no leukocytosis, BC x2 pending, lactate 1.5, procalcitonin negative Status: Acute Plan Pending blood culture results, if showing NGTD, will plan for discharge to home, to complete oral course of antibiotics for UTI. Time Spent With Patient Total time spent: Total time spent caring for the patient today was 45 minutes. This includes time spent for the visit reviewing the chart, time spent during the visit, time spent after the visit and documentation and planning in coordination of care. Subjective Date Seen: 09/10/23 Interval history: Patient reports feeling better this morning. Less irritable. Fever 100.5 overnight. Denies headache or dizziness. Denies chest pain or shortness of breath. Tolerating advanced diet. Continues to ambulate. Patient was admitted with pancreatitis and monitoring for alcohol withdrawal. Both of these have continued to resolve as expected. Plan was to discharge yesterday however patient developed a fever and was feeling worse. She continued with a low-grade fever overnight. She is currently being treated for a UTI. Chest x-ray was questionable but she has not had a significant or worsening cough. No leukocytosis. Procalcitonin negative. Blood cultures are pending. Exam Narrative: Exam Narrative: PHYSICAL EXAM General: Calm, pleasant, conversant, NAD Cardiovascular: RRR, S1S2. No pitting edema Pulmonary: CTA bilaterally without rhonchi, rales, expiratory wheezes. No dyspnea on room air Abdominal: Soft, no distension, suprapubic mild tenderness, no guarding. Upper quadrant pain has resolved Neurological: Alert, answering questions appropriately, cranial nerves intact, no focal findings Extremities: Tremors have resolved. No gross joint deformity or swelling. AROMI. Neurovascularly intact Skin: Warm, dry. Const: Vital Signs, click to edit/add: Vital Signs - 24 hr 09/09/23 11:00 09/09/23 15:53 09/09/23 16:09 Temperature 100.2 F H 99.7 F H Pulse Rate [Pulse Oximeter] 110 H 92 Respiratory Rate 18 18 Blood Pressure [Le ft Arm] 105/70 126/71 Pulse Oximetry 93 94 94 Oxygen Delivery Me thod Room Air Room Air 09/09/23 16:09 09/09/23 19:00 09/09/23 23:00 Temperature 99.1 F Pulse Rate [Pulse Oximeter] 92 92 Respiratory Rate 18 18 16 Blood Pressure [Le ft Arm] 113/82 Pulse Oximetry 95 Oxygen Delivery Me thod Room Air 09/10/23 02:30 09/10/23 07:00 09/10/23 07:00 Temperature 100.5 F H 98.8 F Pulse Rate [Pulse Oximeter] 111 H 88 88 Respiratory Rate 18 18 18 Blood Pressure [Le ft Arm] 141/74 H 130/75 Pulse Oximetry 92 95 Oxygen Delivery Me thod Room Air Room Air Labs Labs: Laboratory Results - last 24 hr 09/09/23 09/09/23 09/09/23 10:47 10:57 Unknown WBC RBC Hgb Hct MCV MCH MCHC Plt Count Sodium Potassium Chloride Carbon Dioxide Anion Gap BUN Creatinine Estimated Creat Clear Estimated GFR Glucose Lactate 1.5 Calcium Total Bilirubin AST ALT Alkaline Phosphatase Total Protein Albumin Lipase Procalcitonin 0.14 Stl C. diff Tox B Gene Negative Stl C. diff [id number]-NAP1-[id number] Presumptive Negative Lab Acknowledgement Test Added 09/10/23 06:15 WBC 6.31 RBC 2.33 L Hgb 8.1 L Hct 25.6 L MCV 110 H MCH 35 H MCHC 32 Plt Count 243 Sodium 138 Potassium 3.5 L Chloride 109 Carbon Dioxide 23 Anion Gap 6 L BUN 6 L Creatinine 0.7 Estimated Creat Clear 49.72 Estimated GFR 97 Glucose 97 Lactate Calcium 7.2 L Total Bilirubin 0.3 AST 57 H ALT 38 H Alkaline Phosphatase 109 Total Protein 5.9 L Albumin 2.9 L Lipase 1869 H Procalcitonin Stl C. diff Tox B Gene Stl C. diff [id number]-[id number] Lab Acknowledgement
[2023-09-10 10:52] VITALS: BP 136/82; PULSE 88; RESP 20; TEMP 37.2; O2SAT 97
--- NOTE | 2023-09-10 11:47 | PM.DS1 ---
DS: Providers Provider Date Seen: 09/10/23 Date of admission: 09/05/23 15:12 Primary care physician: Not a Local Provider Admitting Clinician: Shay Hollingsworth MD Consults: 09/06/23 10:31 Consult to X Ray Examiner Of Aircraft [CONS] Routine Comment: Reason for Consult:: Substance Abuse Screening Attending Physician on discharge: DARELL Keller, [facility] Date of Discharge: 09/10/23 DS: Diagnosis Discharge Diagnosis (1) Acute pancreatitis: Status: Acute Problem details: - by imaging uncomplicated Lipase on admission > 16,000, improved to < 2000 prior to discharge following bowel rest, IV hydration, slow advancement of diet. Abdominal pain, nausea, vomiting resolved. Discussed abstinence from alcohol and risk for recurrence. She will need outpatient follow-up after establishing with local PCP for post hospital evaluation. (2) Alcohol withdrawal: Status: Acute Problem details: Prior to discharge, last alcohol intake was on 09/03/2023. Patient was placed on CIWA protocol with Ativan and 1 dose of phenobarbital. Patient is discharged with oral MVI, folic acid, and thiamine. information services consultant consulted to provide chemical dependency resources. -UDS obtained showing opiates and barbiturates otherwise negative (3) Diarrhea: Status: Acute Problem details: Acute on chronic history of for the past 2 years. Typically takes a pre biotic. Admits diarrhea onset in setting of increased alcohol intake. C diff negative during hospital course. GI pathogen panel pending on discharge. (4) Alcoholic liver disease: Status: Acute Problem details: -stigmata to include low platelets, elevated MCV, low sodium, transaminitis, hyperbilirubinemia Will need outpatient follow-up for ongoing monitoring and management. (5) Alcohol use disorder: Status: Acute Problem details: -minimal acknowledgement -beatrize also drinking daily, per patient, sounds as though he may be difficult support, making excuses for both of them information services consultant consulted, providing chemical dependency resources. (6) Hypertension: Status: Acute Problem details: Continue Amlodipine, losartan, hydrochlorothiazide (7) Hyperlipidemia: Status: Acute Problem details: Continue statin (8) Thrombocytopenia: Status: Acute Problem details: -in setting of chronic alcohol abuse (9) Anemia: Status: Acute Problem details: -in setting of chronic alcohol abuse No signs of active bleed, bloody stools, hematuria. RBC 2.62, hematocrit 28, iron 46, TIBC 211, ferritin 861 With low TIBC, normal Iron, and high ferritin, recommendation for alcohol abstinence. Hemoglobin remains low in setting of chronic alcohol disease, with elevated TIBC and ferritin, normal iron levels. Will continue to monitor. Will need outpatient follow-up with PCP. (10) Hypokalemia: Status: Acute Problem details: In setting of chronic alcohol abuse. Started on and will be discharged with potassium replacement b.i.d.. Will need outpatient follow-up with PCP to monitor and manage (11) UTI (urinary tract infection): Status: Acute Problem details: UC growing E coli, sensitivities reviewed, symptomatic with suprapubic pain. Started on Cipro. Developed fever > 101? with increased stools. Ciprofloxacin discontinued. C difficile negative. Started on IV ceftriaxone. Discharged with oral cefpodoxime to complete 10 day course of antibiotics. Outpatient follow-up with PCP for resolution. (12) Fever: Status: Acute Problem details: Fever up to 101.8? day 4 of hospital stay. Oral antibiotic discontinued and started on IV ceftriaxone and azithromycin pending further workup. CXR showed bibasilar densities, procalcitonin negative, no significant cough or worsening. Received 2 doses IV azithromycin, no further macrolide needed on discharge. Secondary to increased stools, while on stool softener in ciprofloxacin, stools collected, C diff negative, GI pathogen pending at time of discharge. No leukocytosis, lactate 1.5, procalcitonin negative, BC x2 showing no growth after 24 hours on day of discharge. Fever likely in setting of acute cystitis. Discharged with oral antibiotics. Outpatient follow-up with PCP DS: Summary Hospital Course Hospital Course: [age] year old female past medical history significant for hypertension, hyperlipidemia was admitted to the medical floor for further management acute pancreatitis and alcohol withdrawal in setting of chronic alcohol use. Course of care and details as noted above. Patient will need close follow-up with PCP, plans to establish care in [place], following hospital stay for acute pancreatitis, acute cystitis. Patient encouraged to maintain abstinence from alcohol. She has a fiancee who also actively drinks daily so this could be difficult support. She is discharged with oral multivitamin, thiamine, folic acid. She will continue on oral antibiotics for her UTI, completing a 10 day course. Remainder of chronic medical comorbidities were monitored and managed with home medications. Status at Discharge Overall status at discharge: patient is back to baseline Time Spent with Patient Time attestation: Total time spent providing and/or coordinating discharge services: Time spent: Greater than 30 minutes Exam Narrative: Exam Narrative: PHYSICAL EXAM General: Pleasant, conversant, NAD Cardiovascular: RRR Pulmonary: No dyspnea Neurological: Alert, answering questions appropriately Skin: Warm, dry. Const: Vital Signs, click to edit/add: Vital Signs - 24 hr 09/09/23 15:53 09/09/23 16:09 09/09/23 16:09 Temperature 99.7 F H Pulse Rate [Pulse Oximeter] 92 92 Respiratory Rate 18 18 Blood Pressure [Le ft Arm] 126/71 Pulse Oximetry 94 94 Oxygen Delivery Me thod Room Air 09/09/23 19:00 09/09/23 23:00 09/10/23 02:30 Temperature 99.1 F 100.5 F H Pulse Rate [Pulse Oximeter] 92 111 H Respiratory Rate 18 16 18 Blood Pressure [Le ft Arm] 113/82 141/74 H Pulse Oximetry 95 92 Oxygen Delivery Me thod Room Air Room Air 09/10/23 07:00 09/10/23 07:00 09/10/23 10:52 Temperature 98.8 F 98.9 F Pulse Rate [Pulse Oximeter] 88 88 88 Respiratory Rate 18 18 20 Blood Pressure [Le ft Arm] 130/75 136/82 Pulse Oximetry 95 97 Oxygen Delivery Me thod Room Air Room Air DS: Data Data Completed and Pending Pending studies at discharge: Stool GI pathogen, final blood culture result Labs on day of discharge: Labs from last 24 hours 09/10/23 09/09/23 06:15 Unknown WBC 6.31 RBC 2.33 L Hgb 8.1 L Hct 25.6 L MCV 110 H MCH 35 H MCHC 32 Plt Count 243 Sodium 138 Potassium 3.5 L Chloride 109 Carbon Dioxide 23 Anion Gap 6 L BUN 6 L Creatinine 0.7 Estimated Creat Clear 49.72 Estimated GFR 97 Glucose 97 Calcium 7.2 L Total Bilirubin 0.3 AST 57 H ALT 38 H Alkaline Phosphatase 109 Total Protein 5.9 L Albumin 2.9 L Lipase 1869 H Stl C. diff Tox B Gene Negative Stl C. diff [id number] Presumptive Negative Preliminary micro results at discharge 09/09/23 10:42 Blood Culture - Preliminary Blood NO GROWTH AFTER 24 HOURS 09/09/23 10:47 Blood Culture - Preliminary Blood NO GROWTH AFTER 24 HOURS Discharge Plan Discharge Disposition: Home, Self-Care Date of Admission: 09/05/23 15:12 Attending Provider on Discharge: Merry Luong Primary Care Provider: Provider,Not a Local Condition: Improved Anticipated Discharge Date/Time: 09/10/23 11:34 Discharge Medications: New gabapentin 300 mg Capsule 300 mg PO HS Qty: 30 0RF potassium chloride 20 mEq tablet extended release 20 meq PO BIDWM Qty: 60 0RF thiamine mononitrate (vit B1) [Vitamin B-1 (mononitrate)] 100 mg Tablet 100 mg PO DAILY Qty: 30 0RF folic acid 1 mg Tablet 1 mg PO DAILY Qty: 30 0RF multivitamin with folic acid [Thera] 400 mcg Tablet 1 tab PO DAILY Qty: 30 0RF cefpodoxime 200 mg tablet 200 mg PO BID Qty: 14 0RF Rx Instructions: must administer with a meal/food Continued amlodipine 2.5 mg tablet 2.5 mg PO DAILY atorvastatin 20 mg tablet 20 mg PO DAILY losartan-hydrochlorothiazide 100-12.5 mg tablet 1 tab PO DAILY Discharge Orders: Discharge Order (Routine); Ordered 09/10/23 Ordered By: Merry Luong Patient Education: Pancreatitis (GEN), Urinary Tract Infection in Women (GEN), Anemia (GEN) Additional Instructions: Continue your abstinence from alcohol. You will need to follow up with your PCP for further management of your anemia, thrombocytopenia, electrolyte derangement, and liver disease in setting of your chronic alcohol use. Continue to take potassium and follow-up with PCP for recheck of your levels. Finish the antibiotic prescribed for you for your urinary tract infection. Activity Level: No Restrictions Discharge Diet: Regular Follow Up Appointments: [facility] [Provider Group] - 09/19/23 (Would like to establish care at [facility]. Post hospital follow-up for acute pancreatitis and alcohol withdrawal in setting of chronic alcohol use. Recheck electrolytes, hemoglobin. Follow-up resolution UTI.) Provider,Not a Local [Primary Care Provider] - 09/19/23 (Post hospital follow-up for acute pancreatitis and alcohol withdrawal in setting of chronic alcohol use. Recheck electrolytes, hemoglobin.) Forms: Work/School Release, [facility] Info Instructions
--- NOTE | 2023-09-10 12:35 | PC.SOCIAL ---
Discharge planning: ornamental ironworker met with pt in her room. ornamental ironworker offered resources for alcohol treatment programs in [facility]. Pt stated that she was not interested. Pt said that she goes to and has a current sponsor and will reach out to that person for help, if needed. Social work to follow-up as needed.
[2023-09-12 18:54] LABS: Adenovirus PCR Not Detected; Astrovirus PCR Not Detected; Campylobacter PCR Not Detected; Cryptosporidium PCR Not Detected; Cyclospora cayetanensis PCR Not Detected; Entamoeba histolytica PCR Not Detected; Enteroaggregative E coli PCR Not Detected; Enteropathogenic E coli PCR Not Detected; Enterotoxigenic E coli PCR Not Detected; Giardia lamblia PCR Not Detected; Norovirus Gi/GII PCR Not Detected; Plesiomonas shig PCR Not Detected; Rotavirus A PCR Not Detected; Salmonella PCR Not Detected; Sapovirus PCR Not Detected; Shiga toxin E coli PCR Not Detected; Shigella/Enteroinvasive E coli Not Detected; Vibrio PCR Not Detected; Vibrio cholerae PCR Not Detected; Yersinia enterocolitica PCR Not Detected
== END 2023-09-10 13:07 | disposition home or self-care (01) | DRG 439 ==
LOC: ED 13:13 → MEDSURG 13:43
PROVIDERS: Physician Assistant; Admitting Provider Family Medicine; Emergency Provider Emergency Medicine Emergency Medical Services; Visit Provider Family Medicine
DX: K85.20 Alcohol induced acute pancreatitis without necrosis or infection (principal); F10.139 Alcohol abuse with withdrawal, unspecified; N30.00 Acute cystitis without hematuria; B96.20 Unspecified Escherichia coli [E. coli] as the cause of diseases classified elsewhere; K70.10 Alcoholic hepatitis without ascites; R19.7 Diarrhea, unspecified; D69.6 Thrombocytopenia, unspecified; D64.9 Anemia, unspecified; E87.6 Hypokalemia; L29.9 Pruritus, unspecified; T36.8X5A Adverse effect of other systemic antibiotics, initial encounter; L27.0 Generalized skin eruption due to drugs and medicaments taken internally; R05.9 Cough, unspecified; R50.9 Fever, unspecified; I10 Essential (primary) hypertension; E78.5 Hyperlipidemia, unspecified
CPT/HCPCS: 36415; 71045; 74018; 74177; 80048; 80053; 80069; 80076; 80306; 81001; 82330; 82728; 82803; 82977; 83540; 83550; 83605; 83690; 83735; 84145; 84443; 84484; 85025; 85027; 85610; 86140; 87040; 87045; 87046; 87086; 87186; 87427; 87493; 87505; 93005; 99284; 99285; A9153; A9270; C9113; J0456; J0696; J1170; J1650; J1885; J2060; J2560; J3411; J3475; J3480; J7030; J7042; J7050; J7120; Q9967

== ENCOUNTER 2023-09-18 11:37 | Outpatient (CLI) | payer MEDICAID, SELFPAY | END 2023-09-18 11:38 | disposition home or self-care (01) | PROVIDERS: Visit Provider Nurse Practitioner Family | DX: I10 Essential (primary) hypertension (principal); E78.5 Hyperlipidemia, unspecified; N39.0 Urinary tract infection, site not specified; D64.9 Anemia, unspecified; D69.6 Thrombocytopenia, unspecified; R30.0 Dysuria; F10.90 Alcohol use, unspecified, uncomplicated | CPT/HCPCS: 80053; 80061; 83690; 87086; 87186 ==

== ENCOUNTER 2023-10-09 09:26 | Outpatient (CLI) | payer MEDICAID, SELFPAY | END 2023-10-09 09:27 | disposition home or self-care (01) | LOC: NFLDREF 10-20 13:00 | PROVIDERS: Visit Provider Nurse Practitioner Family | DX: K70.9 Alcoholic liver disease, unspecified (principal) | CPT/HCPCS: 80053; 82150; 83690; 87086 ==

== ENCOUNTER 2024-07-11 18:00 | Inpatient (IN) | payer MEDICAID, SELFPAY ==
[2024-07-11] VITALS (20 sets, daily range): BP systolic 134–178; BP diastolic 76–97; PULSE 64–120; RESP 16–18; TEMP 37.1–37.3; O2SAT 96–100; BMI 20.9; BMI 20.1
--- NOTE | 2024-07-11 19:26 | ED_ITS ---
<Statement entered by Regla Camarillo MD - 07/13/24 23:22> This documentation has been reviewed and approved. HPI - Abdominal Pain General Date Seen: 07/11/24 Chief Complaint: Abdominal Pain Stated Complaint: abdominal pain, shortness of breath Time Seen by Provider: 07/11/24 19:20 Source: patient Mode of arrival: ambulatory Limitations: no limitations History of Present Illness HPI narrative: Patient is a 63-year-old female presenting to the emergency department for shortness of breath and abdominal pain. She states the abdominal pain been going on for the past 3 days and is throat her entire abdomen. States she has had pain like this before when she had pancreatitis several months ago except for this time feels worse. Has had nausea earlier but not currently nauseated. Has not been able to eat or drink much due to the symptoms. Feels like she has pain radiating up through her chest. Is having some associated shortness of breath is unsure if it is due to the pain or not. The only previous surgery was a cardiac ablation but no other heart issues. Does have hypertension. States previously her pancreatitis was due to alcohol use she states she has not drink for 7 months then about 3 months ago she started drinking alcohol again. Started 1-2 a day it is now drinking 3 or 4 drinks a day. States she has not any alcohol since . Has had chills but denies fevers. Denies diarrhea, constipation, lightheadedness, dizziness, headache, vision changes. No other concerns noted at this time. Related Data Previous Rx's ?Medication ?Instructions ?Recorded amlodipine 2.5 mg tablet 2.5 mg PO DAILY #90 tabs 09/18/23 atorvastatin 20 mg tablet 20 mg PO DAILY #90 tabs 09/18/23 gabapentin 300 mg capsule 300 mg PO HS #90 caps 09/18/23 losartan 100 1 tab PO DAILY #90 tabs 09/18/23 mg-hydrochlorothiazide 12.5 mg tablet Allergies Allergy/AdvReac Type Severity Reaction Status Date / Time sulfas Allergy Unknown Unknown Uncoded 09/18/23 11:01 Review of Systems Status of ROS Reports: 10 or more systems reviewed and unremarkable except as noted in History and below [facility] Medical History Hypertension ?I10 - Essential (primary) hypertension (ICD-10) Restless legs ?G25.81 - Restless legs syndrome (ICD-10) Hyperlipidemia ?E78.5 - Hyperlipidemia, unspecified (ICD-10) Bacteriuria ?R82.71 - Bacteriuria (ICD-10) Diarrhea ?R19.7 - Diarrhea, unspecified (ICD-10) Alcoholic liver disease ?K70.9 - Alcoholic liver disease, unspecified (ICD-10) Alcohol use disorder ?F10.90 - Alcohol use, unspecified, uncomplicated (ICD-10) Hyperlipidemia ?E78.5 - Hyperlipidemia, unspecified (ICD-10) Surgical History History of dilation and curettage ?Z98.890 - Other specified postprocedural states (ICD-10) History of tonsillectomy ?Z90.89 - Acquired absence of other organs (ICD-10) History of radiofrequency ablation procedure for cardiac arrhythmia ?Z98.890 - Other specified postprocedural states (ICD-10) Social History Narrative: lives with life partner, CAM. drinks daily, works as a hairdresser. What is your current living situation?: I presently have a place to live Problems where you live: no known problems Problems where you live details: none In the past 12 months, utilities in danger of being shut off: no In the past 12 mos, have been you worried that your food would run out before you had money to buy more?: never true In the past 12 mos, the food you bought just didn't last and you didn't have money to buy more?: never true Highest level of school completed/degree received: some college, no degree Smoking Status: Former smoker Nicotine containing products detail: Have not smoked for 45 years How often do you have a drink containing alcohol: 4 or more times a week Alcohol type: wine How many standard drinks containing alcohol do you have on a typical day: 3 or 4 How often do you have six or more drinks on one occasion: Monthly AUDIT-C Alcohol total score: 7 Non-prescribed substance use: denies use Caffeine: No How often does anyone, including family, friends and others, physically hurt you : never How often does anyone, including family, friends and others, insult or talk down to you: never How often does anyone, including family, friends and others, threaten you with harm: never How often does anyone, including family, friends and others, scream or curse at you: never service: No Exam Narrative: Exam Narrative: Const: Well-nourished, Well-developed, in moderate distress Eyes: PERRL, no conjunctival injection, and symmetrical lids HENT: Atraumatic external nose and ears. Moist mucous membranes. Neck: Symmetric, trachea midline, No thyromegaly. CVS: RRR, No murmurs or gallops. Peripheral pulses 2+ and equal in all extremities RESP: Unlabored respiratory effort. Clear to auscultation bilaterally. GI: Diffuse abdominal tenderness, Nondistended, No rebound or guarding. MSK:Extremities w/o deformity, Normal Active ROM Skin: Warm, Dry. No rashes or lesions. Neuro: Normal Muscle tone, No focal neurological deficits. Psych: Awake, Alert, & Oriented x3. Appropriate mood and affect. Const: Vital Signs, click to edit/add: Vital Signs - 24 hr 07/11/24 18:06 07/11/24 19:55 07/11/24 19:57 Temperature 99.1 F Pulse Rate 78 80 Pulse Rate [Right Pulse Oximeter] 120 H Respiratory Rate 18 Blood Pressure 134/86 Blood Pressure [Ri ght Upper Arm] 178/97 H Pulse Oximetry 97 97 97 Oxygen Delivery Me thod Room Air 07/11/24 20:00 07/11/24 20:02 07/11/24 20:03 Temperature Pulse Rate 74 79 72 Pulse Rate [Right Pulse Oximeter] Respiratory Rate 16 Blood Pressure 134/85 Blood Pressure [Ri ght Upper Arm] Pulse Oximetry 96 98 97 Oxygen Delivery Me thod 07/11/24 20:15 07/11/24 20:22 07/11/24 20:30 Temperature Pulse Rate 75 78 80 Pulse Rate [Right Pulse Oximeter] Respiratory Rate Blood Pressure 134/84 Blood Pressure [Ri ght Upper Arm] Pulse Oximetry 97 97 97 Oxygen Delivery Me thod Course Vital Signs Vital signs: Initial Vital Signs Temperature 99.1 F 07/11/24 18:06 Temperature Source Temporal Artery Scan 07/11/24 18:06 Pulse Rate 120 H 07/11/24 18:06 Pulse Rhythm Regular 07/11/24 18:06 Pulse Strength 3+ Normal 07/11/24 18:06 Respiratory Rate 18 07/11/24 18:06 Blood Pressure 178/97 H 07/11/24 18:06 Blood Pressure Mean 124 H 07/11/24 18:06 Blood Pressure Position Sitting 07/11/24 18:06 Pulse Oximetry 97 07/11/24 18:06 Oxygen Delivery Method Room Air 07/11/24 18:06 Vital Signs Temperature 99.1 F 07/11/24 18:06 Pulse Rate 120 H 07/11/24 18:06 Respiratory Rate 18 07/11/24 18:06 Blood Pressure 178/97 H 07/11/24 18:06 Pulse Oximetry 97 07/11/24 18:06 Oxygen Delivery Method Room Air 07/11/24 18:06 Temperature 99.1 F 07/11/24 18:06 Pulse Rate 80 07/11/24 20:30 Respiratory Rate 16 07/11/24 20:02 Blood Pressure 134/84 07/11/24 20:22 Pulse Oximetry 97 07/11/24 20:30 Oxygen Delivery Method Room Air 07/11/24 18:06 Medications Administered Medications: Discontinued Medications Generic Name Dose Route Start Last Admin Trade Name Freq PRN Reason Stop Dose Admin Morphine Sulfate 4 mg 07/11/24 19:20 07/11/24 19:47 Morphine 4 Mg/Ml Inj IVP 07/11/24 19:21 4 mg ONCE ONE Administration MDM - Abdominal Pain MDM Narrative Medical decision making narrative: Patient is a 63-year-old female presenting to the emergency department for abdominal pain med and shortness of breath. Her main complaint seems to be the abdominal pain. Differential at this time includes pancreatitis, gastroenteritis, gallbladder liver disease, appendicitis, diverticulitis. Seems less likely to be an SBO. She is hypertensive and aortic aneurysm seems less likely. She does states she is very nervous around doctors and I measured her blood pressure higher. Patient is tachycardic at 120. Aortic dissection is on the differential but she appears relatively stable at this time. She is also having the shortness of breath so I will order an EKG, troponin, D-dimer, COVID/flu/RSV. Will wait to do imaging until D-dimer results return. Morphine given for pain. Age adjusted D-dimer within normal limits. CBC shows no concerning findings. CMP shows no concerning abnormalities. Sodium slightly low at 130 to well likely to be related to her symptoms. His AST and ALT are slightly elevated 197 and 115. These are higher than her previous levels but bilirubin is within normal limits. Lipases is elevated 1596. She was still in pain so Dilaudid was given. Give her 1 L of normal saline. Urinalysis may show a UTI but she is not currently having any urinary symptoms so I would not treat her for it. Viral swabs are negative. Will do a CT scan to look for any abnormalities such as possible gallstone pancreatitis or other abnormalities. Patient is agreeable for admission. Lab Data Labs: Lab Results 07/11/24 07/11/24 07/11/24 Range/Units 19:30 19:40 20:39 WBC 5.35 (4.50-11.00) K/uL RBC 3.81 L (4.00-5.20) m/uL Hgb 12.4 (12.0-16.0) gm/dL Hct 38.1 (33.0-51.0) % MCV 100 (80-100) fL MCH 33 (26-34) pg MCHC 33 (32-36) gm/dL RDW Coeff of Inocencio 11.8 (11.5-15.5) % Plt Count 133 L (140-440) K/uL Neut % (Auto) 71.5 (42.0-72.0) % Lymph % (Auto) 16.6 L (20-44) % [place] % (Auto) 10.7 (0.0-11.0) % Eos % (Auto) 0.4 (0.0-7.0) % Baso % (Auto) 0.6 (0.0-3.0) % Neut # (Auto) 3.83 (1.7-7.0) K/uL Lymph # (Auto) 0.90 (0.90-2.90) K/uL [place] # (Auto) 0.60 (0.00-0.90) K/UL Eos # (Auto) 0.02 (0.00-0.50) K/uL Baso # (Auto) 0.03 (0.00-0.30) K/uL Abs Immat Gran (auto) 0.01 (0.00-0.30) K/uL Imm/Tot Granulo (auto) 0.2 % D-Dimer Quant (PE/DVT) 0.57 H (0.00-0.50) ug/ml Sodium 132 L (135-149) mmol/L Potassium 3.6 (3.6-5.1) mmol/L Chloride 92 L (96-114) mmol/L Carbon Dioxide 24 (20-32) mmol/L Anion Gap 16 H (7-15) mEq/L BUN 30 (7-30) mg/dL Creatinine 0.9 (0.5-1.5) mg/dL Estimated Creat Clear 49.72 Estimated GFR 72 ml/min Glucose 132 H (60-115) mg/dL Calcium 9.7 (8.4-10.6) mg/dL Magnesium 1.6 (1.5-2.6) mg/dL Total Bilirubin 0.7 (0.1-1.5) mg/dL AST 197 H (12-35) U/L ALT 115 H (4-35) U/L Alkaline Phosphatase 77 (40-150) U/L Troponin I < 0.01 L (0.01-0.04) ng/mL Total Protein 8.1 (6.0-8.3) g/dL Albumin 4.8 (3.3-5.0) g/dL Lipase 1596 H (23-300) U/L Urine Color Yellow (Yellow) Urine Appearance Clear (Clear) Urine pH 6.0 (5.0-8.5) Ur Specific [place] 1.015 (1.000-1.030) Urine Protein Negative (Negative) Urine Glucose (UA) Negative (Negative) Urine Ketones 2+ A (Negative) Urine Blood Negative (Negative) Urine Nitrite Negative (Negative) Urine Bilirubin 2+ A (Negative) Urine Urobilinogen 0.2 (0.2-1.0) Ur Leukocyte Esterase 1+ A (Negative) Urine RBC 2-5 A (0-2) Urine WBC 10-25 A (0-5) Ur Squamous Epith Cells None (None-Few) Urine Bacteria Few A (None) Ur Drug Screen Comment See Note SARS-CoV-2 (PCR) Negative SARS-CoV-2 (Negative) Influenza Type A (PCR) Negative PCR FLU A (Negative) Influenza Type B (PCR) Negative PCR FLU B (Negative) RSV (PCR) Negative PCR RSV (Negative) Lab Acknowledgement Test Added ECG Data Attestation: I personally reviewed and interpreted this ECG as follows: Prior ECG tracings: available for review Interpretation: Normal sinus rhythm with a rate of 73 beats per minute, normal intervals, normal axis, no ST abnormalities. Inverted T-waves noted in V2 and V3 and a P is consistent with previous EKG on file. Of note previous EKG does seem to the low artifact but do believe I see inverted T-waves Discharge Plan Discharge Clinical Impression: Pancreatitis Qualifiers: Chronicity: acute Pancreatitis type: alcohol induced Acute pancreatitis complication: unspecified Qualified Code(s): K85.20 - Alcohol induced acute pancreatitis without necrosis or infection Patient Disposition: Admitted As Observation Condition: Improved Prescriptions: No Action amlodipine 2.5 mg tablet 2.5 mg PO DAILY Qty: 90 3RF atorvastatin 20 mg tablet 20 mg PO DAILY Qty: 90 3RF gabapentin 300 mg capsule 300 mg PO HS Qty: 90 3RF losartan-hydrochlorothiazide 100-12.5 mg tablet 1 tab PO DAILY Qty: 90 3RF Follow Up/Referrals: Provider,Not a Local [Primary Care Provider] -
[2024-07-11] MEDS: MORPHINE 4 MG/ML INJ IVP (19:47)
[2024-07-11 19:48] LABS: Appearance Urine Clear (Clear); Bilirubin Urine 2+ (Negative); Blood Urine Negative (Negative); Color Urine Yellow (Yellow); Glucose Urine Negative (Negative); Ketones Urine 2+ (Negative); Leukocyte Esterase Urine 1+ (Negative); Nitrite Urine Negative (Negative); Protein Urine Negative (Negative); Specific Gravity Urine 1.015 (1.000-1.030); Urobilinogen Urine 0.2 (0.2-1.0)
[2024-07-11 20:01] LABS: Basophils Absolute Auto 0.03 K/uL (0.00-0.30); Basophils Percent Auto 0.6 % (0.0-3.0); Eosinophils Absolute Auto 0.02 K/uL (0.00-0.50); Eosinophils Percent Auto 0.4 % (0.0-7.0); Hematocrit 38.1 % (33.0-51.0); Hemoglobin* 12.4 gm/dL (12.0-16.0); Immature Granulocytes Abs Auto 0.01 K/uL (0.00-0.30); Immature Granulocytes Pct Auto 0.2 %; Lymphocytes Percent Auto 16.6 % (20-44); Mean Corpuscular HGB Conc 33 gm/dL (32-36); Mean Corpuscular Hemoglobin 33 pg (26-34); Mean Corpuscular Volume 100 fL (80-100); Monocytes Percent Auto 10.7 % (0.0-11.0); Neutrophils Absolute Auto 3.83 K/uL (1.7-7.0); Neutrophils Percent Auto 71.5 % (42.0-72.0); Platelet Count* 133 K/uL (140-440); RDW Coefficient of Variation % 11.8 % (11.5-15.5); Red Blood Count 3.81 m/uL (4.00-5.20); White Blood Count* 5.35 K/uL (4.50-11.00)
[2024-07-11 20:05] LABS: Slide Review Reflex No
[2024-07-11 20:15] LABS: Albumin* 4.8 g/dL (3.3-5.0)
[2024-07-11 20:15] LABS: Bacteria Urine Few
[2024-07-11 20:16] LABS: Chloride* 92 mmol/L (96-114); Potassium* 3.6 mmol/L (3.6-5.1); Sodium* 132 mmol/L (135-149)
[2024-07-11 20:18] LABS: Alkaline Phosphatase* 77 U/L (40-150); Anion Gap 16 mEq/L (7-15); Aspartate Amino Transferase* 197 U/L (12-35); Bilirubin Total* 0.7 mg/dL (0.1-1.5); Blood Urea Nitrogen* 30 mg/dL (7-30); Carbon Dioxide* 24 mmol/L (20-32); Creatinine* 0.9 mg/dL (0.5-1.5); Est. Creatinine Clearance* 49.72; Estimated Glomerular Filt Rate 72 ml/min; Total Protein* 8.1 g/dL (6.0-8.3)
[2024-07-11 20:19] LABS: Alanine Aminotransferase* 115 U/L (4-35); Calcium* 9.7 mg/dL (8.4-10.6); Glucose* 132 mg/dL (60-115); Lipase* 1596 U/L (23-300); Magnesium* 1.6 mg/dL (1.5-2.6)
[2024-07-11 20:20] LABS: D Dimer Quantitative* 0.57 ug/ml (0.00-0.50)
--- NOTE | 2024-07-11 20:22 | CRLHL7_ITS ---
For Patients: As a result of the Century Cures Act, medical imaging exams and procedure reports are released immediately into your electronic medical record. You may view this report before your referring provider. If you have questions, please contact your health care provider. INDICATION: Abdominal pain, pancreatitis. TECHNIQUE: CT of the abdomen and pelvis acquired with 59 cc Isovue 370 IV contrast. Coronal and sagittal reconstructions. COMPARISON: CT of the abdomen and pelvis 09/05/2023. FINDINGS: Lower chest: Unremarkable. Liver: Diffuse hepatic steatosis. Focal fatty infiltration about the falciform ligament. Stable 2.8 cm lobulated enhancing lesion in the right hepatic lobe (series 2, image 26). Gallbladder and bile ducts: Unremarkable. No biliary dilation. Spleen: Unremarkable. Pancreas: There is mild inflammatory fat stranding around the pancreatic head suggesting acute pancreatitis. The pancreatic duct is minimally prominent but not overtly dilated. No evidence of parenchymal necrosis. No peripancreatic fluid collections. Adrenal glands: Unremarkable. Kidneys, Ureters, and Bladder: Symmetric enhancement. No hydronephrosis or obstructing urinary calculi. Mild bladder wall thickening. Reproductive organs: Fibroid uterus. GI tract/Peritoneum: There is inflammatory fat stranding about the duodenum which is likely reactive. No significant wall thickening. No small bowel dilation. Moderate amount of stool throughout the colon. Hyperdense material in the distal colon. Negative appendix. No intraperitoneal free air or fluid. Vasculature: Abdominal aorta is normal in caliber. Mesenteric arteries appear patent. Lymph nodes: No lymphadenopathy. Abdominal Wall: Unremarkable. Bones: Unremarkable for age. IMPRESSION: 1. Findings suggestive of acute pancreatitis with mild inflammatory fat stranding about the pancreatic head. Correlate with serum amylase and lipase. 2. Inflammatory fat stranding around the duodenum is likely reactive. No significant wall thickening. 3. Stable lobulated enhancing lesion in the right hepatic lobe. This may represent a flash filling hemangioma but is indeterminate. Consider further evaluation with nonemergent MRI. Please note that all CT scans at this facility use dose modulation, iterative reconstruction, and/or weight-based dosing when appropriate to reduce radiation dose to as low as reasonably achievable. Dictated by Margo Kelelr MD @ 07/11/2024 9:35:22 PM (Electronically Signed)
[2024-07-11 20:32] LABS: Troponin I* < 0.01 ng/mL (0.01-0.04)
[2024-07-11 20:37] LABS: PCR FLU A Negative PCR FLU A (Negative); PCR FLU B Negative PCR FLU B (Negative); PCR RSV Negative PCR RSV (Negative); SARS PCR* Negative SARS-CoV-2 (Negative)
[2024-07-11] MEDS: 0.9 % SODIUM CHLORIDE 1000 ml 1,000 ML IV (20:55)
[2024-07-11] MEDS: HYDROmorphone 0.5 mg/0.5 ml inj IVP (20:55)
[2024-07-11 20:57] LABS: Ethanol* < 0.01 % (0.01-0.03)
--- NOTE | 2024-07-11 21:01 | P.IMHP_ITS ---
Hospitalist- H&P: HPI History of Present Illness Date Seen: 07/12/24 Chief complaint: abdominal pain, shortness of breath Narrative: ADMISSION HISTORY AND PHYSICAL - HOSPITALIST Chief Complaint: Abdominal pain, feels like pancreatitis HPI: 63-year-old with a known history of alcohol-induced pancreatitis, alcohol use disorder, hypertension presents for the 2nd time this year with acute onset pancreatitis. She was last admitted here in August. She states that she was sober for several months and then began drinking daily. Her intake has increased in recent weeks. Her last drink was 3 days prior to admission. Her alcohol level is 0 today. She has developed abdominal pain in the last 48 hours. She has not been able to keep much down, she said the abdominal pain is penetrating and unrelenting. She is nauseous. Weak. She did establish care with Leila Bautista. Follow-up labs after her August admission showed some concern with a new thrombocytosis after having a thrombocytopenia in the hospital. However her LFTs had returned to normal during alcohol abstinence as did her lipase. ER COURSE: Of fluids, pain management, CT scan. Acute pancreatitis identified. Hospital medicine team asked to admit and manage. CODE STATUS: FULL CODE EMERGENCY CONTACT PLAN: Jori Torres Rel To [facility] [employer] I've updated the PFSH, medications and allergies in the Expanse tabs. INVESTIGATIONS: LABS/MICRO/ECG/IMAGING Her CBC reflects a normal white blood cell count. Her hemoglobin is much improved from her previous admission, query hemoconcentration? Platelet count is 133. INR pending D-dimer is slightly elevated at 0.57 Sodium is slightly depressed at 1:32 a.m.. Normal potassium. Hypochloremic. Her anion gap is just mildly elevated at 16. Normal kidney function. Glucose is 132. CRP 1.0. Normal undetectable troponin. GGT pending. LFTs are 2 and 3 times higher than they were in August. AST is now 197, ALT is 115. Her bilirubin is normal. Her lipase is 1600. Drug screen negative Negative respiratory PCR screen for COVID, influenza, RSV. Urine culture pen CT 1. Findings suggestive of acute pancreatitis with mild inflammatory fat stranding about the pancreatic head. Correlate with serum amylase and lipase. 2. Inflammatory fat stranding around the duodenum is likely reactive. No significant wall thickening. 3. Stable lobulated enhancing lesion in the right hepatic lobe. This may represent a flash filling hemangioma but is indeterminate. Consider further evaluation with nonemergent MRI. REVIEW OF SYSTEMS: 12-point ROS completed with patient and negative unless otherwise stated in HPI or below. PHYSICAL EXAM: CONSTITUTIONAL: Conversive, good historian. A/O. Knows setting and context. Nervous. Tearful. VITAL SIGNS: see record. HEENT: Normocephalic, atraumatic. PERRL, EOMI, conjunctivae pink, no scleral icterus. Ears and nose externally normal. Pharynx normal. NECK: No JVD. No carotid bruit, no thyromegaly, no adenopathy. CHEST: Clear to auscultation bilaterally HEART: S1 and S2 normal. No harsh murmurs. ABDOMEN: Tender diffusely in the bilateral upper quadrants. No rebound. Bowel sounds present MUSCULOSKELETAL: No gross joint deformity or swelling. NEURO: Cranial nerves intact. Grossly intact. No asymmetric findings. SKIN: No rashes, petechiae, concerning changes PSYCHIATRIC: Euthymic. Tearful ADMIT TO MEDSURG: FLOOR CARE DVT: Lovenox GI: PO intake, IV PPI. P.o. PPI Time spent: Today I spent 75 minutes seeing the patient, discussing the patient with ER staff, reviewing Expanse and EPIC notes/diagnostics, discussing the care plan with our care time that includes social work, PT/OT, pharmacy, RT, fdc and documenting my impressions and plan in the medical record. [facility] Medical History (Updated 07/12/24 @ 00:24 by Regla Camarillo MD) Restless legs ?G25.81 - Restless legs syndrome (ICD-10) Anemia ?D64.9 - Anemia, unspecified (ICD-10) Hypertension ?I10 - Essential (primary) hypertension (ICD-10) Hyperlipidemia ?E78.5 - Hyperlipidemia, unspecified (ICD-10) Diarrhea ?R19.7 - Diarrhea, unspecified (ICD-10) Alcoholic liver disease ?K70.9 - Alcoholic liver disease, unspecified (ICD-10) Alcohol use disorder ?F10.90 - Alcohol use, unspecified, uncomplicated (ICD-10) Hyperlipidemia ?E78.5 - Hyperlipidemia, unspecified (ICD-10) Surgical History History of dilation and curettage ?Z98.890 - Other specified postprocedural states (ICD-10) History of tonsillectomy ?Z90.89 - Acquired absence of other organs (ICD-10) History of radiofrequency ablation procedure for cardiac arrhythmia ?Z98.890 - Other specified postprocedural states (ICD-10) Social History Narrative: lives with life partner, JORI. drinks daily, works as a hairdresser. What is your current living situation?: I presently have a place to live Problems where you live: no known problems Problems where you live details: none In the past 12 months, utilities in danger of being shut off: no In the past 12 mos, have been you worried that your food would run out before you had money to buy more?: never true In the past 12 mos, the food you bought just didn't last and you didn't have money to buy more?: never true Highest level of school completed/degree received: some college, no degree Smoking Status: Former smoker Nicotine containing products detail: Have not smoked for 45 years How often do you have a drink containing alcohol: 4 or more times a week Alcohol type: wine How many standard drinks containing alcohol do you have on a typical day: 3 or 4 How often do you have six or more drinks on one occasion: Monthly AUDIT-C Alcohol total score: 7 Non-prescribed substance use: denies use Caffeine: No How often does anyone, including family, friends and others, physically hurt you : never How often does anyone, including family, friends and others, insult or talk down to you: never How often does anyone, including family, friends and others, threaten you with harm: never How often does anyone, including family, friends and others, scream or curse at you: never service: No Meds Home Medications and Allergies Allergies Allergy/AdvReac Type Severity Reaction Status Date / Time sulfas Allergy Unknown Unknown Uncoded 09/18/23 11:01 Exam Const: Vital Signs, click to edit/add: Vital Signs - 24 hr 07/11/24 18:06 07/11/24 19:55 07/11/24 19:57 Temperature 99.1 F Pulse Rate 78 80 Pulse Rate [Right Pulse Oximeter] 120 H Respiratory Rate 18 Blood Pressure 134/86 Blood Pressure [Ri ght Upper Arm] 178/97 H Pulse Oximetry 97 97 97 Oxygen Delivery Me thod Room Air 07/11/24 20:00 07/11/24 20:02 07/11/24 20:03 Temperature Pulse Rate 74 79 72 Pulse Rate [Right Pulse Oximeter] Respiratory Rate 16 Blood Pressure 134/85 Blood Pressure [Ri ght Upper Arm] Pulse Oximetry 96 98 97 Oxygen Delivery Me thod 07/11/24 20:15 07/11/24 20:22 07/11/24 20:30 Temperature Pulse Rate 75 78 80 Pulse Rate [Right Pulse Oximeter] Respiratory Rate Blood Pressure 134/84 Blood Pressure [Ri ght Upper Arm] Pulse Oximetry 97 97 97 Oxygen Delivery Sc thod Hospitalist - H&P: Result Labs Labs: Short CBC 07/11/24 Range/Units 19:30 WBC 5.35 (4.50-11.00) K/uL Hgb 12.4 (12.0-16.0) gm/dL Hct 38.1 (33.0-51.0) % Plt Count 133 L (140-440) K/uL BMP 07/11/24 19:30 Sodium 132 L Potassium 3.6 Chloride 92 L Carbon Dioxide 24 BUN 30 Creatinine 0.9 Glucose 132 H Calcium 9.7 Cardiac Enzymes 07/11/24 Range/Units 19:30 Troponin I < 0.01 L (0.01-0.04) ng/mL Liver Function 07/11/24 Range/Units 19:30 Total Bilirubin 0.7 (0.1-1.5) mg/dL AST 197 H (12-35) U/L ALT 115 H (4-35) U/L Alkaline Phosphatase 77 (40-150) U/L Albumin 4.8 (3.3-5.0) g/dL Urine 07/11/24 Range/Units 19:40 Urine Color Yellow (Yellow) Urine Appearance Clear (Clear) Urine pH 6.0 (5.0-8.5) Ur Specific [place] 1.015 (1.000-1.030) Urine Protein Negative (Negative) Urine Glucose (UA) Negative (Negative) Assessment and Plan Assessment and plan (1) Pancreatitis: Problem comment: -CT confirm, acute uncomplicated. Inflammatory changes around the duodenum. Hepatic hemangioma likely. -secondary to alcohol use -IV fluids, pain management, clear fluids progressing as patient can tolerate -IV Lovenox, IV PPI with starting p.o. PPI tomorrow -trend labs Status: Acute (2) Alcohol use disorder: Problem comment: -will encourage patient to seek outpatient support through AA and consider inpatient treatment -alcohol abstinence this necessary Status: Acute (3) Alcoholic liver disease: Problem comment: -stigmata to include low platelets, elevated MCV, low sodium, transaminitis Will need outpatient follow-up for ongoing monitoring and management. Status: Acute (4) Thrombocytopenia: Problem comment: -in setting of chronic alcohol abuse Status: Acute (5) Hypertension: Problem comment: -3 drug combo for control; will continue these Status: Acute (6) Hyperlipidemia: Status: Acute (7) Restless legs: Status: Acute
[2024-07-11 21:09] LABS: INR 0.86 (0.91-1.10); Prothrombin Time 12.2 Seconds
[2024-07-11 21:16] LABS: Gamma Glutamyl Transpeptidase* 97 U/L (8-55)
[2024-07-11 22:31] LABS: Amphetamine Screen Urine Negative (Negative); Barbiturate Screen Urine Negative (Negative); Benzodiazepines Screen Urine Negative (Negative); Cannabinoid Screen Urine Negative (Negative); Cocaine Screen Urine Negative (Negative); Methadone Screen Urine Negative (Negative); Methamphetamines Screen Urine Negative (Negative); Opiate Screen Urine Negative (Negative); Oxycodone Screen Urine Negative (Negative); Phencyclidine Screen Urine Negative (Negative); Tricyclic Antidepressant Urine Negative (Negative)
[2024-07-11] MEDS: PANTOPRAZOLE SODIUM 40 MG INJ IVP (23:52)
[2024-07-11] MEDS: ENOXAPARIN 40 MG/0.4 ML INJ SUBCUT (23:52)
[2024-07-11] MEDS: GABAPENTIN 300 MG CAPSULE PO (23:52)
[2024-07-11] MEDS: SODIUM CHLORIDE 0.9 % (FLUSH) 10 ML SYRINGE 5 ML IVF (23:52)
[2024-07-11] MEDS: HYDROmorphone 0.5 mg/0.5 ml inj 0.2 MG IVP (23:53)
[2024-07-12] VITALS (10 sets, daily range): BP systolic 113–159; BP diastolic 69–95; PULSE 62–79; RESP 16–60; TEMP 36.6–37.7; O2SAT 96–98
[2024-07-12] MEDS: hydrOXYzine pamoate 25 MG CAPSULE PO ×4 (00:04→18:27)
[2024-07-12] MEDS: MAGNESIUM IV 2 GM/50 ML PIGGYBACK IVPB (01:19)
[2024-07-12] MEDS: 5 % DEX/0.45 SOD CHL+KCL20 mEq 1,000 ML 125 ML IV ×3 (01:19→18:33)
[2024-07-12] MEDS: METOPROLOL TARTRATE 1 MG/ML inj 5 MG IVP ×2 (01:19→03:39)
[2024-07-12] MEDS: MELATONIN 3 MG TABLET PO ×2 (03:38→21:15)
[2024-07-12] MEDS: HYDROmorphone 0.5 mg/0.5 ml inj 0.2 MG IVP ×2 (03:38→10:06)
[2024-07-12] MEDS: OMEPRAZOLE 20 MG CAPSULE DR 40 MG PO (06:33)
--- NOTE | 2024-07-12 06:38 | PC.NURSE ---
Shift note: Pt was brought to the unit on account of abdominal pain which started 3 days ago. She arrived on a wheelchair, alert and oriented. Pt was able to keep a standing position for weight and ambulated with SBA. Pain was rated at 5 on arrival because she received deluded from the ED prior to arrival. CWAIR has been 1 throughout the night. However, nurse noted some anxiety in patient, Hydroxyzine given and melatonin for difficulty sleeping. Bp was elevated on admission. With the Metoprolol, it was reduced this morning.
[2024-07-12 07:10] LABS: Hematocrit 35.3 % (33.0-51.0); Hemoglobin* 11.5 gm/dL (12.0-16.0); Mean Corpuscular HGB Conc 33 gm/dL (32-36); Mean Corpuscular Hemoglobin 33 pg (26-34); Mean Corpuscular Volume 101 fL (80-100); Platelet Count* 113 K/uL (140-440); Red Blood Count 3.49 m/uL (4.00-5.20)
[2024-07-12 07:13] LABS: Slide Review Reflex No
[2024-07-12 07:24] LABS: Chloride* 99 mmol/L (96-114)
[2024-07-12 07:25] LABS: Potassium* 3.3 mmol/L (3.6-5.1); Sodium* 135 mmol/L (135-149)
[2024-07-12 07:27] LABS: Anion Gap 6 mEq/L (7-15); Aspartate Amino Transferase* 125 U/L (12-35); Bilirubin Direct* 0.2 mg/dL (0.0-0.5); Bilirubin Total* 0.5 mg/dL (0.1-1.5); Carbon Dioxide* 30 mmol/L (20-32); Creatinine* 0.7 mg/dL (0.5-1.5); Est. Creatinine Clearance* 48.04; Estimated Glomerular Filt Rate 97 ml/min
[2024-07-12 07:28] LABS: Alanine Aminotransferase* 91 U/L (4-35); Alkaline Phosphatase* 68 U/L (40-150); Blood Urea Nitrogen* 17 mg/dL (7-30); Calcium* 8.8 mg/dL (8.4-10.6); Glucose* 165 mg/dL (60-115); Phosphorus* 3.2 mg/dL (2.5-4.5)
[2024-07-12 07:30] LABS: C Reactive Protein* 1.2 mg/dL (0.5-1.0)
[2024-07-12 07:38] LABS: Lipase* 2779 U/L (23-300)
[2024-07-12] MEDS: LOSARTAN POTASSIUM 50 MG TABLET 100 MG PO (08:45)
[2024-07-12] MEDS: MULTIVITAMIN/MINERALS 1 TABLET 1 TAB PO (08:46)
[2024-07-12] MEDS: AMLODIPINE 5 MG TABLET 2.5 MG PO (08:46)
[2024-07-12] MEDS: ATORVASTATIN 10 MG TABLET 20 MG PO (08:46)
[2024-07-12] MEDS: THIAMINE 100 MG TABLET 250 MG PO ×2 (08:46→21:17)
--- NOTE | 2024-07-12 08:58 | NUTR.NU ---
RDN with MS consult for recurrent pancreatitis. Patient admitted with recurrent alcohol-induced pancreatitis. Current diet is Clears. Weight history is stable. Not appropriate for diet education at this time. RDN will monitor and offer diet education at a more appropriate date.
--- NOTE | 2024-07-12 09:54 | P.IMPN_ITS ---
Progress Note: A&P Assessment and plan (1) Pancreatitis: Problem details: -CT confirm, acute uncomplicated. Inflammatory changes around the duodenum. Hepatic hemangioma likely -secondary to alcohol use -IV fluids, pain management, clear fluids progressing as patient can tolerate -IV Lovenox, IV PPI with starting p.o. PPI tomorrow -trend labs - lipase on the rise, LFTs down trending on 07/12 Status: Acute (2) Alcohol use disorder: Problem details: -will encourage patient to seek outpatient support through AA and consider inpatient treatment -alcohol abstinence is necessary -thiamine, folic acid, MVI daily (takes a vitamin at home) Status: Acute (3) Alcoholic liver disease: Problem details: -stigmata to include low platelets, elevated MCV, low sodium, transaminitis Will need outpatient follow-up for ongoing monitoring and management. Status: Acute (4) Thrombocytopenia: Problem details: -in setting of chronic alcohol abuse Status: Acute (5) Hypertension: Problem details: -continue amlodipine, hold losartan-HCTZ, utilizing losartan potassium during hospital course, metoprolol tartrate p.r.n. Status: Acute (6) Hyperlipidemia: Problem details: -continue statin Status: Acute (7) Restless legs: Problem details: -continue gabapentin Status: Acute (8) Hepatic lesion: Problem details: -incidental finding on CT shows stable lobulated enhancing lesion in the right hepatic lobe. This may represent a flash filling hemangioma but is indeterminate -outpatient consideration for further evaluation with nonemergent MRI Status: Acute (9) Hypokalemia: Problem details: -potassium 3.3, will replace with IV bumps and oral supplement Status: Resolved Time Spent With Patient Total time spent: Total time spent caring for the patient today was 45 minutes. This includes time spent for the visit reviewing the chart, time spent during the visit, time spent after the visit and documentation and planning in coordination of care. Subjective Date Seen: 07/12/24 Interval history: Patient reports ongoing pain across the top of her abdomen, under her breasts and into her back. Only slightly better than yesterday. No nausea or vomiting. Tolerating small amount of clears. Denies headache or dizziness. Denies chest pain or shortness of breath. Exam Narrative: Exam Narrative: PHYSICAL EXAM General: Pleasant, conversant, NAD HEENT: Normocephalic, atraumatic, sclera white, EOMI, oral mucosa moist Cardiovascular: RRR, S1S2. No pitting edema Pulmonary: CTA bilaterally without rhonchi, rales, expiratory wheezes. No dyspnea Abdominal: Soft, mildly bloated, tender along mid epigastric area Neurological: Alert, answering questions appropriately, cranial nerves intact, no focal findings Extremities: No gross joint deformity or swelling. AROMI. Neurovascularly intact Skin: Warm, dry. Const: Vital Signs, click to edit/add: Vital Signs - 24 hr 07/11/24 18:06 07/11/24 19:55 07/11/24 19:57 Temperature 99.1 F Pulse Rate 78 80 Pulse Rate [Left P ulse Oximeter] Pulse Rate [Right Pulse Oximeter] 120 H Respiratory Rate 18 Blood Pressure 134/86 Blood Pressure [Ri ght Arm] Blood Pressure [Ri ght Upper Arm] 178/97 H Pulse Oximetry 97 97 97 [facility] 07/11/24 20:00 07/11/24 20:02 07/11/24 20:03 Temperature Pulse Rate 74 79 72 Pulse Rate [Left P ulse Oximeter] Pulse Rate [Right Pulse Oximeter] Respiratory Rate 16 Blood Pressure 134/85 Blood Pressure [Ri ght Arm] Blood Pressure [Ri ght Upper Arm] Pulse Oximetry 96 98 97 Oxygen Delivery Il thod 07/11/24 20:15 07/11/24 20:22 07/11/24 20:30 Temperature Pulse Rate 75 78 80 Pulse Rate [Left P ulse Oximeter] Pulse Rate [Right Pulse Oximeter] Respiratory Rate Blood Pressure 134/84 Blood Pressure [Ri ght Arm] Blood Pressure [Ri ght Upper Arm] Pulse Oximetry 97 97 97 Oxygen Delivery Il thod 07/11/24 20:45 07/11/24 21:00 07/11/24 21:02 Temperature Pulse Rate 78 75 79 Pulse Rate [Left P ulse Oximeter] Pulse Rate [Right Pulse Oximeter] Respiratory Rate Blood Pressure 139/86 Blood Pressure [Ri ght Arm] Blood Pressure [Ri ght Upper Arm] Pulse Oximetry 98 97 96 Oxygen Delivery Me thod 07/11/24 21:15 07/11/24 21:22 07/11/24 21:30 Temperature Pulse Rate 71 66 64 Pulse Rate [Left P ulse Oximeter] Pulse Rate [Right Pulse Oximeter] Respiratory Rate 16 Blood Pressure 148/76 H Blood Pressure [Ri ght Arm] Blood Pressure [Ri ght Upper Arm] Pulse Oximetry 98 97 98 Oxygen Delivery Me thod 07/11/24 21:42 07/11/24 21:45 07/11/24 21:59 Temperature Pulse Rate 65 67 Pulse Rate [Left P ulse Oximeter] Pulse Rate [Right Pulse Oximeter] Respiratory Rate 16 Blood Pressure 151/83 H Blood Pressure [Ri ght Arm] Blood Pressure [Ri ght Upper Arm] Pulse Oximetry 99 98 98 Oxygen Delivery Me thod Room Air 07/11/24 21:59 07/11/24 22:22 07/11/24 23:00 Temperature 98.8 F 98.8 F Pulse Rate Pulse Rate [Left P ulse Oximeter] 70 70 70 Pulse Rate [Right Pulse Oximeter] Respiratory Rate 16 16 16 Blood Pressure Blood Pressure [Ri ght Arm] 173/94 H 173/94 H Blood Pressure [Ri ght Upper Arm] Pulse Oximetry 100 100 Oxygen Delivery Me thod Room Air Room Air 07/12/24 00:17 07/12/24 01:11 07/12/24 02:11 Temperature 98.8 F 98.7 F 98.2 F Pulse Rate Pulse Rate [Left P ulse Oximeter] 69 62 66 Pulse Rate [Right Pulse Oximeter] Respiratory Rate 16 16 16 Blood Pressure Blood Pressure [Ri ght Arm] 159/89 H 141/92 H 144/95 H Blood Pressure [Ri ght Upper Arm] Pulse Oximetry 98 97 97 Oxygen Delivery Me thod Room Air Room Air Room Air 07/12/24 03:00 07/12/24 06:00 07/12/24 07:00 Temperature 98 F 97.8 F 98.0 F Pulse Rate Pulse Rate [Left P ulse Oximeter] 65 74 68 Pulse Rate [Right Pulse Oximeter] Respiratory Rate 16 16 18 Blood Pressure Blood Pressure [Ri ght Arm] 140/83 H 122/82 120/72 Blood Pressure [Ri ght Upper Arm] Pulse Oximetry 97 97 98 Oxygen Delivery Me thod Room Air Room Air Labs Labs: Laboratory Results - last 24 hr 07/11/24 07/11/24 07/11/24 19:30 19:40 20:39 WBC 5.35 RBC 3.81 L Hgb 12.4 Hct 38.1 MCV 100 MCH 33 MCHC 33 RDW Coeff of Inocencio 11.8 Plt Count 133 L Neut % (Auto) 71.5 Lymph % (Auto) 16.6 L Wilkin % (Auto) 10.7 Eos % (Auto) 0.4 Baso % (Auto) 0.6 Neut # (Auto) 3.83 Lymph # (Auto) 0.90 Wilkin # (Auto) 0.60 Eos # (Auto) 0.02 Baso # (Auto) 0.03 Abs Immat Gran (auto) 0.01 Imm/Tot Granulo (auto) 0.2 INR 0.86 L D-Dimer Quant (PE/DVT) 0.57 H Sodium 132 L Potassium 3.6 Chloride 92 L Carbon Dioxide 24 Anion Gap 16 H BUN 30 Creatinine 0.9 Estimated Creat Clear 49.72 Estimated GFR 72 Glucose 132 H Calcium 9.7 Phosphorus Magnesium 1.6 Total Bilirubin 0.7 Direct Bilirubin GGT 97 H AST 197 H ALT 115 H Alkaline Phosphatase 77 Troponin I < 0.01 L C-Reactive Protein 1.0 Total Protein 8.1 Albumin 4.8 Lipase 1596 H Urine Color Yellow Urine Appearance Clear Urine pH 6.0 Ur Specific Cassandra 1.015 Urine Protein Negative Urine Glucose (UA) Negative Urine Ketones 2+ A Urine Blood Negative Urine Nitrite Negative Urine Bilirubin 2+ A Urine Urobilinogen 0.2 Ur Leukocyte Esterase 1+ A Urine RBC 2-5 A Urine WBC 10-25 A Ur Squamous Epith Cells None Urine Bacteria Few A Urine Opiates Screen Negative Ur Oxycodone Screen Negative Urine Methadone Screen Negative Ur Barbiturates Screen Negative U Tricyclic Antidepress Negative Ur Phencyclidine Scrn Negative Ur Amphetamines Screen Negative U Methamphetamines Scrn Negative U Benzodiazepines Scrn Negative Urine Cocaine Screen Negative U Marijuana (THC) Screen Negative Ur Drug Screen Comment See Note Ethyl Alcohol < 0.01 L SARS-CoV-2 (PCR) Negative SARS-CoV-2 Influenza Type A (PCR) Negative PCR FLU A Influenza Type B (PCR) Negative PCR FLU B RSV (PCR) Negative PCR RSV Lab Acknowledgement Test Added 07/11/24 07/12/24 20:58 06:52 WBC 4.30 L RBC 3.49 L Hgb 11.5 L Hct 35.3 MCV 101 H MCH 33 MCHC 33 RDW Coeff of Inocencio Plt Count 113 L Neut % (Auto) Lymph % (Auto) Wilkin % (Auto) Eos % (Auto) Baso % (Auto) Neut # (Auto) Lymph # (Auto) Wilkin # (Auto) Eos # (Auto) Baso # (Auto) Abs Immat Gran (auto) Imm/Tot Granulo (auto) INR D-Dimer Quant (PE/DVT) Sodium 135 Potassium 3.3 L Chloride 99 Carbon Dioxide 30 Anion Gap 6 L BUN 17 Creatinine 0.7 Estimated Creat Clear 48.04 Estimated GFR 97 Glucose 165 H Calcium 8.8 Phosphorus 3.2 Magnesium Total Bilirubin 0.5 Direct Bilirubin 0.2 GGT AST 125 H ALT 91 H Alkaline Phosphatase 68 Troponin I C-Reactive Protein 1.2 H Total Protein 7.0 Albumin 4.0 Lipase 2779 H Urine Color Urine Appearance Urine pH Ur Specific Cassandra Urine Protein Urine Glucose (UA) Urine Ketones Urine Blood Urine Nitrite Urine Bilirubin Urine Urobilinogen Ur Leukocyte Esterase Urine RBC Urine WBC Ur Squamous Epith Cells Urine Bacteria Urine Opiates Screen Ur Oxycodone Screen Urine Methadone Screen Ur Barbiturates Screen U Tricyclic Antidepress Ur Phencyclidine Scrn Ur Amphetamines Screen U Methamphetamines Scrn U Benzodiazepines Scrn Urine Cocaine Screen U Marijuana (THC) Screen Ur Drug Screen Comment Ethyl Alcohol SARS-CoV-2 (PCR) Influenza Type A (PCR) Influenza Type B (PCR) RSV (PCR) Lab Acknowledgement Test Added
[2024-07-12] MEDS: SODIUM CHLORIDE 0.9 % (FLUSH) 10 ML SYRINGE 5 ML IVF (10:07)
[2024-07-12] MEDS: POTASSIUM CHLORIDE 10 MEQ/100 ML PIGGYBACK 75 MEQ IVPB ×2 (10:07→11:38)
[2024-07-12] MEDS: FOLIC ACID 1 MG TABLET PO (10:07)
[2024-07-12] MEDS: OXYCODONE 5 MG TABLET PO ×3 (10:41→21:16)
[2024-07-12] MEDS: HYDROmorphone 0.5 mg/0.5 ml inj IVP ×2 (12:45→18:33)
--- NOTE | 2024-07-12 14:55 | PC.SOCIAL ---
Discharge planning: restaurant worker met with pt today to discuss resources for chemical dependency. Pt would be open to resource for A.A. meetings near [place], which is close to where she lives. restaurant worker will check into this for the pt and check-in with her again on Friday. Pt was thankful and appreciative of the visit. Social work to follow-up as needed.
[2024-07-12] MEDS: POTASSIUM CHLORIDE 10 MEQ CAPSULE ER 40 MEQ PO (15:29)
--- NOTE | 2024-07-12 19:15 | PC.NURSE ---
End of Shift: The patient is alert and orientated, mildly anxious this shift about pain. Moderate to severe pain in medial upper abdomen. Prn medications were given. Up ad natalie in her room. VSS on RA, noted slight fever at 1500.... stated to monitor for viral infection symptoms. Tolerated a regular diet poorly this evening, stated it made her pain worse. Call light within reach. Cheryl VENEGAS BSN
[2024-07-12] MEDS: GABAPENTIN 300 MG CAPSULE PO (21:19)
[2024-07-12] MEDS: ENOXAPARIN 40 MG/0.4 ML INJ SUBCUT (21:20)
[2024-07-13] MEDS: OXYCODONE 5 MG TABLET PO ×4 (02:31→15:22)
[2024-07-13] MEDS: 5 % DEX/0.45 SOD CHL+KCL20 mEq 1,000 ML 125 ML IV ×2 (02:33→12:55)
[2024-07-13 02:37] VITALS: BP 141/79; PULSE 79; RESP 18; TEMP 37.6; O2SAT 96
[2024-07-13 06:00] VITALS: BP 134/89; PULSE 77; RESP 18; TEMP 37.4; O2SAT 98
[2024-07-13 06:10] VITALS: BP 134/89; PULSE 77; RESP 18; TEMP 37.4; O2SAT 98
[2024-07-13] MEDS: OMEPRAZOLE 20 MG CAPSULE DR 40 MG PO (06:25)
[2024-07-13 06:34] LABS: Hematocrit 33.9 % (33.0-51.0); Mean Corpuscular HGB Conc 32 gm/dL (32-36); Mean Corpuscular Hemoglobin 33 pg (26-34); Mean Corpuscular Volume 101 fL (80-100); Platelet Count* 119 K/uL (140-440); Red Blood Count 3.36 m/uL (4.00-5.20); White Blood Count* 6.18 K/uL (4.50-11.00)
--- NOTE | 2024-07-13 06:46 | PC.NURSE ---
Shift note ([id number]): Patient pleasant, alert and oriented. Ambulates independently in room. Continues with discomfort in back. Reports pain is ?more in the front now and radiates up to her gut.? Given PRN Oxycodone for?abdominal pain rated 6/10.
[2024-07-13 06:50] LABS: Albumin* 3.5 g/dL (3.3-5.0); Chloride* 105 mmol/L (96-114); Slide Review Reflex No
[2024-07-13 06:51] LABS: Potassium* 4.2 mmol/L (3.6-5.1); Sodium* 135 mmol/L (135-149)
[2024-07-13 06:53] LABS: Alkaline Phosphatase* 52 U/L (40-150); Anion Gap 5 mEq/L (7-15); Aspartate Amino Transferase* 49 U/L (12-35); Bilirubin Total* 0.3 mg/dL (0.1-1.5); Blood Urea Nitrogen* 5 mg/dL (7-30); Carbon Dioxide* 25 mmol/L (20-32); Creatinine* 0.6 mg/dL (0.5-1.5); Est. Creatinine Clearance* 49.27; Estimated Glomerular Filt Rate 101 ml/min; Total Protein* 6.3 g/dL (6.0-8.3)
[2024-07-13 06:54] LABS: Alanine Aminotransferase* 50 U/L (4-35); Calcium* 8.6 mg/dL (8.4-10.6); Glucose* 144 mg/dL (60-115)
[2024-07-13 07:28] LABS: Lipase* 5438 U/L (23-300)
[2024-07-13] MEDS: ATORVASTATIN 10 MG TABLET 20 MG PO (09:01)
[2024-07-13] MEDS: LOSARTAN POTASSIUM 50 MG TABLET 100 MG PO (09:01)
[2024-07-13] MEDS: AMLODIPINE 5 MG TABLET 2.5 MG PO (09:01)
[2024-07-13] MEDS: THIAMINE 100 MG TABLET 250 MG PO (09:02)
[2024-07-13] MEDS: MULTIVITAMIN/MINERALS 1 TABLET 1 TAB PO (09:02)
[2024-07-13] MEDS: FOLIC ACID 1 MG TABLET PO (09:03)
[2024-07-13 09:25] VITALS: PULSE 88; RESP 18
--- NOTE | 2024-07-13 10:04 | CRLHL7_ITS ---
For Patients: As a result of the Century Cures Act, medical imaging exams and procedure reports are released immediately into your electronic medical record. You may view this report before your referring provider. If you have questions, please contact your health care provider. Indication: Elevated lipase. Technique: Multisequence multiplanar MRI of the abdomen without IV contrast. Comparison: CT abdomen/pelvis dated 07/11/2024. Findings: Liver: No significant hepatic steatosis. Lobulated 3.0 cm T2 hyperintense lesion in the right lobe of the liver is incompletely characterized without IV contrast, but likely reflective of hemangioma versus adenoma. Bile ducts: No intrahepatic or extrahepatic biliary duct dilation. No choledocholithiasis identified. Gallbladder: Unremarkable. Pancreas: Edematous pancreatic parenchyma, with adjacent peripancreatic fluid, compatible with acute pancreatitis. No pancreatic duct dilation, no organized peripancreatic fluid collection identified. Spleen: Unremarkable. Adrenals: Unremarkable. Kidneys: No hydronephrosis bilaterally. Retroperitoneum: No lymphadenopathy. Visualized Bowel and mesentery: Visualized bowel is nondilated. Vessels: Unremarkable for unenhanced study. Abdominal wall: No acute abdominal wall abnormality. Bones: Multilevel degenerative changes of the spine. No suspicious/aggressive focal osseous lesion. Impression: 1. Acute pancreatitis. No organized peripancreatic fluid collection. 2. Lobulated 3.0 cm T2 hyperintense lesion in the right lobe of the liver, incompletely characterized without IV contrast, but likely reflective of a hemangioma versus adenoma. 3. No biliary duct dilation. No choledocholithiasis identified. Dictated by Catherine Weeks MD @ 07/13/2024 1:43:55 PM (Electronically Signed)
[2024-07-13 10:50] VITALS: BP 128/79; PULSE 81; RESP 18; TEMP 36.9; O2SAT 99
[2024-07-13 11:00] VITALS: BP 128/79; PULSE 81; RESP 18; TEMP 36.9; O2SAT 99
--- NOTE | 2024-07-13 11:13 | PC.SOCIAL ---
Addendum entered and electronically signed by COSMO Guardado 07/13/24 13:50: Discharge planning: spring floor service worker provided the pt with two A.A. meeting times in [place] that my work for her schedule. One is on evenings and the other is on Friday evenings. Pt stated that she may also start to attend A.A. meetings in [place], close to where her sister lives. Social work to follow-up as needed. Original Note: Discharge planning: spring floor service worker met with pt today and gave her resources on Chemical Dependency. spring floor service worker found an A.A. meeting in [place], but the pt stated that she is not able to attend that meeting because it is on Friday nights from 7-8pm and she works every Friday until 9pm. spring floor service worker provided the pt with an informational packet on Chemical Dependency and a list of local resources for Inpatient and Outpatient Treatment Programs in [place] and surrounding main line health/main line hospitals. Pt was thankful for the information and also asked if this worker could look for A.A. meetings in [place] that are on , Friday or Friday evenings. Social work to follow-up as needed.
[2024-07-13] MEDS: LORazepam 1 MG TABLET PO (11:24)
--- NOTE | 2024-07-13 14:10 | PM.DS1 ---
DS: Providers Provider Date Seen: 07/13/24 Date of admission: 07/11/24 22:22 Primary care physician: Leila Bautista [employer], [place] Admitting Clinician: Regla Camarillo MD Consults: 07/11/24 22:22 Consult to Ambulatory Nurse [CONS] Routine Comment: Reason for Consult:: Social Service Consult Attending Physician on discharge: DARELL Keller, [facility] Date of Discharge: 07/13/24 DS: Diagnosis Discharge Diagnosis (1) Pancreatitis: Status: Acute Problem details: -CT confirm, acute uncomplicated. Inflammatory changes around the duodenum. Hepatic hemangioma likely -secondary to alcohol use -IV fluids, pain management, clear fluids progressing as patient can tolerate -IV Lovenox, IV PPI with starting p.o. PPI tomorrow -trend labs - lipase on the rise, LFTs down trending on 07/12 Clinically improving, symptoms improving. Pain decreasing however still feels bloated. Tolerating advancing diet without increased pain or nausea vomiting. Would like to discharge to home to continue cares. No longer requiring IV narcotics. Oral intake adequate. LFTs have downtrended. Lipase had increased. MRCP ordered confirming acute pancreatitis without organized peripancreatic fluid collection. No evidence of biliary duct dilation or choledocholithiasis identified. Will discharge to home with ongoing slow advancement in diet and close follow-up with PCP in 2-3 days. No alcohol. Understands to return to ED if new or worsening symptoms. (2) Alcohol use disorder: Status: Acute Problem details: -will encourage patient to seek outpatient support through AA and consider inpatient treatment -alcohol abstinence is necessary -thiamine, folic acid, MVI daily (takes a vitamin at home) Will continue vitamin on discharge. Has resources for reaching out to AA group, including family member. Discussed ongoing abstinence. (3) Alcoholic liver disease: Status: Acute Problem details: -stigmata to include low platelets, elevated MCV, low sodium, transaminitis Will need outpatient follow-up for ongoing monitoring and management. (4) Thrombocytopenia: Status: Acute Problem details: -in setting of chronic alcohol abuse. Outpatient management with PCP (5) Hypertension: Status: Acute Problem details: -continue amlodipine, hold losartan-HCTZ, utilizing losartan potassium during hospital course, metoprolol tartrate p.r.n. Resume home medication on discharge (6) Hyperlipidemia: Status: Acute Problem details: -continue statin (7) Restless legs: Status: Acute Problem details: -continue gabapentin (8) Hepatic lesion: Status: Acute Problem details: -incidental finding on CT shows stable lobulated enhancing lesion in the right hepatic lobe. This may represent a flash filling hemangioma but is indeterminate Outpatient consideration for further evaluation with nonemergent MRI (9) Hypokalemia: Status: Resolved Problem details: Improved to 4.2 on day of discharge following IV in oral supplement. DS: Summary Hospital Course Hospital Course: [age] year old female was admitted to the medical floor for recurrent alcoholic pancreatitis. Clinical improvement noted over 48 hour course. Tolerating advancement in diet. MRCP confirming acute pancreatitis without evidence of choledocholithiasis or biliary dilation. Has a follow-up appointment with PCP on 07/14/2024. Course of care and details as noted above. Remainder of chronic medical comorbidities were monitored and managed with home medications. Status at Discharge Functional status at discharge: independent ambulation Overall status at discharge: patient is progressing back to baseline Time Spent with Patient Time attestation: Total time spent providing and/or coordinating discharge services: Time spent: Greater than 30 minutes Exam Narrative: Exam Narrative: PHYSICAL EXAM General: Pleasant, conversant, NAD Cardiovascular: RRR Pulmonary: No dyspnea Neurological: Alert, answering questions appropriately Skin: Warm, dry. Const: Vital Signs, click to edit/add: Vital Signs - 24 hr 07/12/24 15:00 07/12/24 19:15 07/12/24 23:00 Temperature 99.9 F H 99.2 F 99.5 F Pulse Rate [Left P ulse Oximeter] 77 79 62 Respiratory Rate 16 16 18 Blood Pressure [Ri ght Arm] 130/76 118/73 119/85 Pulse Oximetry 97 97 97 Oxygen Delivery Me thod Room Air 07/13/24 02:37 07/13/24 06:00 07/13/24 06:10 Temperature 99.7 F H 99.4 F 99.4 F Pulse Rate [Left P ulse Oximeter] 79 77 77 Respiratory Rate 18 18 18 Blood Pressure [Ri ght Arm] 141/79 H 134/89 134/89 Pulse Oximetry 96 98 98 Oxygen Delivery Me thod Room Air Room Air Room Air 07/13/24 09:25 07/13/24 10:50 Temperature 98.4 F Pulse Rate [Left P ulse Oximeter] 88 81 Respiratory Rate 18 18 Blood Pressure [Ri ght Arm] 128/79 Pulse Oximetry 99 Oxygen Delivery Me thod Room Air DS: Data Data Completed and Pending Completed studies during hospitalization: Procedures Detoxification Services for Substance Abuse Treatment (09/05/23) Pending studies at discharge: Urine culture growing mixed jossue, UTI ruled out, no further workup. Labs on day of discharge: Labs from last 24 hours 07/13/24 05:57 WBC 6.18 RBC 3.36 L Hgb 11.0 L Hct 33.9 MCV 101 H MCH 33 MCHC 32 Plt Count 119 L Sodium 135 Potassium 4.2 Chloride 105 Carbon Dioxide 25 Anion Gap 5 L BUN 5 L Creatinine 0.6 Estimated Creat Clear 49.27 Estimated GFR 101 Glucose 144 H Calcium 8.6 Magnesium 2.0 Total Bilirubin 0.3 AST 49 H ALT 50 H Alkaline Phosphatase 52 Total Protein 6.3 Albumin 3.5 [address] scan - abdomen: Attestation: I have reviewed the pertinent imaging results. Radiologist's impression: Lower chest: Unremarkable. Liver: Diffuse hepatic steatosis. Focal fatty infiltration about the falciform ligament. Stable 2.8 cm lobulated enhancing lesion in the right hepatic lobe (series 2, image 26). Gallbladder and bile ducts: Unremarkable. No biliary dilation. Spleen: Unremarkable. Pancreas: There is mild inflammatory fat stranding around the pancreatic head suggesting acute pancreatitis. The pancreatic duct is minimally prominent but not overtly dilated. No evidence of parenchymal necrosis. No peripancreatic fluid collections. Adrenal glands: Unremarkable. Kidneys, Ureters, and Bladder: Symmetric enhancement. No hydronephrosis or obstructing urinary calculi. Mild bladder wall thickening. Reproductive organs: Fibroid uterus. GI tract/Peritoneum: There is inflammatory fat stranding about the duodenum which is likely reactive. No significant wall thickening. No small bowel dilation. Moderate amount of stool throughout the colon. Hyperdense material in the distal colon. Negative appendix. No intraperitoneal free air or fluid. Vasculature: Abdominal aorta is normal in caliber. Mesenteric arteries appear patent. Lymph nodes: No lymphadenopathy. Abdominal Wall: Unremarkable. Bones: Unremarkable for age. IMPRESSION: 1. Findings suggestive of acute pancreatitis with mild inflammatory fat stranding about the pancreatic head. Correlate with serum amylase and lipase. 2. Inflammatory fat stranding around the duodenum is likely reactive. No significant wall thickening. 3. Stable lobulated enhancing lesion in the right hepatic lobe. This may represent a flash filling hemangioma but is indeterminate. Consider further evaluation with nonemergent MRI. MRCP: Attestation: I have reviewed the pertinent imaging results. Radiologist's impression: Liver: No significant hepatic steatosis. Lobulated 3.0 cm T2 hyperintense lesion in the right lobe of the liver is incompletely characterized without IV contrast, but likely reflective of hemangioma versus adenoma. Bile ducts: No intrahepatic or extrahepatic biliary duct dilation. No choledocholithiasis identified. Gallbladder: Unremarkable. Pancreas: Edematous pancreatic parenchyma, with adjacent peripancreatic fluid, compatible with acute pancreatitis. No pancreatic duct dilation, no organized peripancreatic fluid collection identified. Spleen: Unremarkable. Adrenals: Unremarkable. Kidneys: No hydronephrosis bilaterally. Retroperitoneum: No lymphadenopathy. Visualized Bowel and mesentery: Visualized bowel is nondilated. Vessels: Unremarkable for unenhanced study. Abdominal wall: No acute abdominal wall abnormality. Bones: Multilevel degenerative changes of the spine. No suspicious/aggressive focal osseous lesion. Impression: 1. Acute pancreatitis. No organized peripancreatic fluid collection. 2. Lobulated 3.0 cm T2 hyperintense lesion in the right lobe of the liver, incompletely characterized without IV contrast, but likely reflective of a hemangioma versus adenoma. 3. No biliary duct dilation. No choledocholithiasis identified. Discharge Plan Discharge Disposition: Home, Self-Care Date of Admission: 07/11/24 22:22 Attending Provider on Discharge: Merry Luong Primary Care Provider: Provider,Not a Local Condition: Improved Anticipated Discharge Date/Time: 07/13/24 14:01 Discharge Medications: New oxycodone 5 mg Tablet 5 mg PO Q4H PRNQty: 15 0RF Continued amlodipine 2.5 mg tablet 2.5 mg PO DAILY Qty: 90 3RF atorvastatin 20 mg tablet 20 mg PO DAILY Qty: 90 3RF gabapentin 300 mg capsule 300 mg PO HS Qty: 90 3RF losartan-hydrochlorothiazide 100-12.5 mg tablet 1 tab PO DAILY Qty: 90 3RF Discharge Orders: Discharge Order (Routine); Ordered 07/13/24 Ordered By: Merry Luong Patient Education: Oxycodone, Rapid Release (By mouth), Pancreatitis (GEN), Low Fat Diet (GEN) Additional Instructions: Continue to slowly advance your diet as tolerated. Avoid alcohol. Tylenol or oxycodone as needed for pain. Close outpatient follow-up with PCP for re-evaluation. AA group support. Activity Level: Activity as Tolerated Discharge Diet: Low Fat/Low Cholesterol Follow Up Appointments: Leila Bautista CNP [Nurse Practitioner] - 07/14/24 10:30 am ([facility] Location for post hospital follow-up.) Forms: Tauntr Info Instructions
--- NOTE | 2024-07-13 15:23 | PC.NURSE ---
End of Shift: Patient pleasant and cooperative, A&O. VSS, afebrile. Spo2 maintained above 90% on RA. Patient reports pain in her abdomen this shift, managed with PRN medication, see MAR. Tolerating regular diet. Independent in room.
--- NOTE | 2024-07-13 17:25 | PC.NURSE ---
Discharge Summary: Patient pleasant and cooperative. Rating pain 5/10 and PRN Oxycodone given x1. Patient discharged home at 1533 with all personal belongings accompanied by family. Discharge instructions including diagnosis, medications and follow up appointment discussed with patient and voiced understanding. SL removed with tip intact.
== END 2024-07-13 15:33 | disposition home or self-care (01) | DRG 439 ==
LOC: ED 20:51 → MEDSURG 21:47
PROVIDERS: Physician Assistant; Admitting Provider Family Medicine; Emergency Provider Student in an Organized Health Care Education/Training Program; Visit Provider Family Medicine
DX: K85.90 Acute pancreatitis without necrosis or infection, unspecified (principal); F10.288 Alcohol dependence with other alcohol-induced disorder; K85.20 Alcohol induced acute pancreatitis without necrosis or infection; K70.10 Alcoholic hepatitis without ascites; E87.6 Hypokalemia; D75.839 Thrombocytosis, unspecified; D69.6 Thrombocytopenia, unspecified; D18.03 Hemangioma of intra-abdominal structures; I10 Essential (primary) hypertension; G25.81 Restless legs syndrome; E78.5 Hyperlipidemia, unspecified
CPT/HCPCS: 36415; 74177; 74181; 80053; 80069; 80076; 80306; 81001; 82077; 82977; 83690; 83735; 84484; 85025; 85027; 85379; 85610; 86140; 87086; 87631; 93005; 99284; 99285; A9153; A9270; J1171; J1650; J2270; J2470; J3475; J3480; J7030; Q9967

== ENCOUNTER 2024-09-23 13:51 | Outpatient (CLI) | payer MEDICAID, SELFPAY | END 2024-09-23 13:52 | disposition home or self-care (01) | LOC: NFLDREF 09-25 03:13 | PROVIDERS: PCP Nurse Practitioner Family; Referring Provider Nurse Practitioner Family; Visit Provider Nurse Practitioner Family | DX: I10 Essential (primary) hypertension (principal); E78.5 Hyperlipidemia, unspecified; R53.83 Other fatigue; F41.9 Anxiety disorder, unspecified; G25.81 Restless legs syndrome | CPT/HCPCS: 80053; 80061 ==

== ENCOUNTER 2024-11-09 17:48 | Outpatient (CLI) | payer MEDICAID, SELFPAY ==
--- NOTE | 2024-11-09 18:20 | CRLHL7_ITS ---
For Patients: As a result of the Century Cures Act, medical imaging exams and procedure reports are released immediately into your electronic medical record. You may view this report before your referring provider. If you have questions, please contact your health care provider. BILATERAL SCREENING MAMMOGRAM WITH COMPUTER-AIDED DETECTION AND TOMOSYNTHESIS TECHNIQUE: CC and MLO views were obtained. These mammographic images have been obtained using full-field digital technique. These mammographic images were interpreted with the benefit of computer-aided detection. Breast Tomosynthesis was used in this interpretation. COMPARISON FILM: 02/01/22, 05/05/20, 10/12/18. FINDINGS: The breasts are heterogeneously dense, which may obscure small masses. IMPRESSION: There is no radiographic evidence for malignancy. ASSESSMENT: BI-RADS Category 1: Negative RECOMMENDATION: Routine screening mammogram in 1 year. A lay language report of this examination will be provided to the patient. Soham Petty M.D. Diagnostic Radiologist [email or web address] SP/Dictated by: Soham Petty MD @ 11/12/2024 12:50:00 PM (Electronically Signed)
== END 2024-11-09 17:49 | disposition home or self-care (01) ==
LOC: MAMMO 17:50
PROVIDERS: PCP Nurse Practitioner Family; Visit Provider Nurse Practitioner Family
DX: Z12.31 Encounter for screening mammogram for malignant neoplasm of breast (principal); R92.333 Mammographic heterogeneous density, bilateral breasts
CPT/HCPCS: 77063; 77067

== ENCOUNTER 2024-11-11 13:44 | Outpatient (CLI) | payer MEDICAID, SELFPAY ==
[2024-11-14 04:22] LABS: HPV Source Cervix; HPV, High Risk by TMA Not Detected
== END 2024-11-11 13:45 | disposition home or self-care (01) ==
PROVIDERS: PCP Nurse Practitioner Family; Visit Provider Registered Nurse
DX: N30.90 Cystitis, unspecified without hematuria (principal); Z12.4 Encounter for screening for malignant neoplasm of cervix; Z11.51 Encounter for screening for human papillomavirus (HPV)
CPT/HCPCS: 87086; 87624; 87625; 88141; 88142